=== PATIENT | female | born 1940 | race Caucasian/White ===

== ENCOUNTER 2016-06-15 08:30 | Outpatient (CLI) | payer MEDICARE | END 2016-06-15 08:31 | disposition home or self-care (01) | DX: H66.92 Otitis media, unspecified, left ear (principal) ==

== ENCOUNTER 2016-12-21 14:21 | Outpatient (CLI) | payer OTHER ==
[2016-12-21 12:50] LABS: BASOPHILS # (AUTO) 0.1 10^3/uL (0.0-0.1); BASOPHILS % (AUTO) 0.7 %; EOSINOPHILS # (AUTO) 0.2 10^3/uL (0.0-0.7); EOSINOPHILS % (AUTO) 2.7 %; HCT - HEMATOCRIT 39.6 % (37.0-47.0); HGB - HEMOGLOBIN 13.6 g/dL (12.0-16.0); LYMPHOCYTES # (AUTO) 1.7 10^3/uL (1.5-3.5); LYMPHOCYTES % (AUTO) 25.6 %; MEAN CORPUSCULAR HGB CONC 34.2 g/dL (32.0-36.0); MEAN CORPUSCULAR VOLUME 93.4 fL (81.0-99.0); MEAN PLATELET VOLUME 8.1 fL (7.9-10.8); MONOCYTES # (AUTO) 0.7 10^3/uL (0.0-1.0); MONOCYTES % (AUTO) 9.9 %; NEUTROPHILS # (AUTO) 4.2 10^3/uL (1.5-6.6); NEUTROPHILS % (AUTO) 61.1 %; RED BLOOD COUNT 4.24 10^6/uL (4.20-5.40); RED CELL DISTRIBUTION WIDTH 13.6 % (12.0-15.0); UNCORRECTED WHITE BLOOD COUNT 6.8 x10^3/uL; WHITE BLOOD COUNT 6.8 x10^3/uL (4.8-10.8)
[2016-12-21 13:14] LABS: ALBUMIN/GLOBULIN RATIO 1.2 (1.0-2.2); BILIRUBIN,TOTAL 0.9 mg/dL (0.2-1.0); BUN - BLOOD UREA NITROGEN 19 mg/dL (6-20); CALCIUM 9.7 mg/dL (8.5-10.3); CARBON DIOXIDE - CO2 32 mmol/L (21-32); CHLORIDE 97 mmol/L (101-111); CHOL/HDL RATIO 3.4 (<4.4); CHOLESTEROL 260 mg/dL; CREATININE 0.9 mg/dL (0.4-1.0); GFR - MDRD 61 (>89); GLUCOSE 110 mg/dL (70-100); HDL CHOLESTEROL 76 mg/dL; HEMOGLOBIN A1C 0.54 g/dL; LDL/HDL RATIO 2.1 (<4.4); POTASSIUM 3.9 mmol/L (3.5-5.0); SODIUM 137 mmol/L (135-145); TOTAL PROTEIN 7.4 g/dL (6.7-8.2); TRIGLYCERIDES 113 mg/dL; VLDL CHOLESTEROL 23 mg/dL
== END 2016-12-21 14:22 | disposition home or self-care (01) ==
LOC: LAB.WCP 14:21
PROVIDERS: ATTEND Family Medicine
DX: R73.01 Impaired fasting glucose (principal); I10 Essential (primary) hypertension
CPT/HCPCS: 36415; 80053; 80061; 83036; 85025

== ENCOUNTER 2018-06-11 08:00 | Outpatient (CLI) | payer MEDICARE, OTHER ==
[2018-06-11 12:46] LABS: BASOPHILS # (AUTO) 0.1 10^3/uL (0.0-0.1); EOSINOPHILS # (AUTO) 0.2 10^3/uL (0.0-0.7); EOSINOPHILS % (AUTO) 3.1 %; HGB - HEMOGLOBIN 13.6 g/dL (12.0-16.0); LYMPHOCYTES % (AUTO) 28.6 %; MEAN CORPUSCULAR HEMOGLOBIN 31.9 pg (27.0-31.0); MEAN CORPUSCULAR HGB CONC 34.3 g/dL (32.0-36.0); MEAN CORPUSCULAR VOLUME 92.8 fL (81.0-99.0); MEAN PLATELET VOLUME 8.2 fL (7.9-10.8); MONOCYTES # (AUTO) 0.7 10^3/uL (0.0-1.0); MONOCYTES % (AUTO) 9.5 %; NEUTROPHILS # (AUTO) 4.1 10^3/uL (1.5-6.6); NEUTROPHILS % (AUTO) 57.8 %; PLT - PLATELET COUNT 327 10^3/uL (130-450); RED BLOOD COUNT 4.27 10^6/uL (4.20-5.40); RED CELL DISTRIBUTION WIDTH 14.2 % (12.0-15.0)
[2018-06-11 12:49] LABS: BILIRUBIN,URINE NEGATIVE (NEGATIVE); GLUCOSE, URINE (UA) NEGATIVE (NEGATIVE); KETONES,URINE (UA) NEGATIVE (NEGATIVE); LEUKOCYTE ESTERASE, URINE TRACE (NEGATIVE); NITRITE,URINE NEGATIVE (NEGATIVE); OCCULT BLOOD,URINE NEGATIVE (NEGATIVE); PH,URINE 5.5 PH (5.0-7.5); PROTEIN,URINE TRACE mg/dL (NEGATIVE); UROBILINOGEN,URINE 0.2 (NORMAL) E.U./dL (NORMAL)
[2018-06-11 13:11] LABS: CALCIUM 9.5 mg/dL (8.5-10.3); CREATININE 0.8 mg/dL (0.4-1.0)
[2018-06-11 13:22] LABS: CLARITY,URINE HAZY (CLEAR)
[2018-06-11 13:23] LABS: BACTERIA,URINE Many /HPF (None Seen); CRYSTALS,URINE 6-10 Calcium Oxalate /LPF; RBC,URINE 0-5 /HPF (0-5); SQUAMOUS EPITHELIAL CELL,UR MANY Squamous (<= Few)
[2018-06-11 13:57] LABS: HB2 TOTAL 14.8 g/dL; HEMOGLOBIN A1C 0.56 g/dL; HEMOGLOBIN A1C % 5.6 % (4.6-6.2)
== END 2018-06-11 23:59 | disposition home or self-care (01) ==
LOC: LAB.WCP 08:00
PROVIDERS: ATTEND Family Medicine
DX: I10 Essential (primary) hypertension (principal); M75.101 Unspecified rotator cuff tear or rupture of right shoulder, not specified as traumatic; R73.01 Impaired fasting glucose
CPT/HCPCS: 36415; 80048; 81001; 83036; 85025; 87086

== ENCOUNTER 2019-02-11 13:15 | Outpatient (CLI) | payer MEDICARE, OTHER | END 2019-02-11 23:59 | disposition home or self-care (01) | LOC: LAB.WCP 13:15 | PROVIDERS: ATTEND Physician Assistant | DX: R35.0 Frequency of micturition (principal) | CPT/HCPCS: 87086; 87181 ==

== ENCOUNTER 2019-05-02 07:00 | Outpatient (CLI) | payer MEDICARE, OTHER | END 2019-05-02 23:59 | disposition home or self-care (01) | LOC: LAB.WCP 07:00 | PROVIDERS: ATTEND Family Medicine | DX: R35.0 Frequency of micturition (principal) | CPT/HCPCS: 87077; 87086; 87181 ==

== ENCOUNTER 2019-05-28 11:20 | Outpatient (CLI) | payer MEDICARE, OTHER ==
--- NOTE | 2019-05-28 12:56 | SLEEP CARE CONSULTATION ---
Information from patient questionnaire entered by Bouchra Diaz. I have reviewed and concur with the information entered by Bouchra Diaz. This document represents the service I personally performed and the decisions made by me, Michelle Londono MD, [facility]. History of Present Illness Reason for Visit: New patient Chief Complaint: reports: Other (having trouble sleeping at night) Duration of Symptoms: all my adult life Usual bedtime: 9-10 pm Time it takes to fall asleep: 60 or more minutes Snores at night: No Observed to quit breathing while asleep: No Sleeps alone due to snoring: No Number of times waking at night: 5-6 Recalls having dreams: Yes Usually gets out of bed at: 5-6 am Feels refreshed in the morning: No Morning headache: No Sleepy or fatigued during the day: Yes Ever fallen asleep while driving: No Takes day naps: No Prior sleep studies: No Additional HPI information: I had the pleasure of seeing Ms. Clark today regarding the possibility of her having a sleep disorder. As you know, she is a 78 year old lady who is here today as recommended by her clinical haematologist because she has atrial fibrillation. She also reports that when she had a shoulder surgery, she was witnessed to stop breathing and had to be transferred to the ICU to recover. The patient tells me that she normally goes to bed around 9 - 10 pm, and it takes her approximately 60+ minutes to fall asleep. She used to take trazodone. She has not been told that she snores at night. She has also been observed to stop breathing in her sleep. She sleeps alone. Her late used a CPAP with oxygen. She can recall waking up on the average of 5 - 6 times during the night. Most of the ti me she wakes up because of having to use the bathroom. She has not awakened because of her own snoring, choking, or having to gasp for air. There is a lot of tossing and turning in her sleep. No somniloquy (sleep talking) or somnambulism (sleep walking). Generally she can recall having dreams. In the morning she usually gets up out of the bed around 5 - 6 a.m. not feeling refreshed nor rested. She usually does not have a morning headache. During the day she does not feel sleepy or fatigued. Her score on [place] Sleepiness Scale is 1 out of 24. She has never fallen asleep while driving nor has had any accident due to sleepiness. She usually does not take naps during the day. Upon falling asleep during the day she denies having vivid dreams. She has never had sleep paralysis, experienced cataplexy or symptoms of restless leg syndrome. She denies having impaired concentration during the day. - Parasomnia Symptoms Ever been unable to move upon waking from sleep: No Ever felt weak in the knees when startled or emotional: No Bothered by creepy, crawly, restless sensations in legs: No Problems with memory or concentration: No Subjective Initial [place] Sleepiness Scale score: 1 Past Medical History Past Medical History: reports: Hypertension, Arrythmia (Atrial fibrillation) Social History The patient's occupation is a retired. Patient is / and lives in [place]. Have you smoked in the past 12 months: No Cigarettes per day (20/pack): 10 Years of smokin Quit date: 06/2018 Smoking Pack Years: 2.0 Alcohol use: Yes Alcohol amount and frequency: 1-2 every night Caffeine use: Yes Caffeine amount and frequency: 1-2 cups of coffee Family History Family history of sleep disordered breathing: No Allergies and Home Medications Drug allergies reviewed: Yes Home medication list reviewed: Yes Allergy and home medication list: Meds: lisinopril/hydrochlorothiazide, gabapentin, Xarelto, flecainide, metoprolol, hydrocodone Allergies: penicillin, Keflex, [place]win Review of Systems Weight gain over past 5 years: 10 Cardiovascular: reports: high blood pressure, irregular heart rate or pulse Respiratory: denies: shortness of breath, wheeze, sputum production, chronic cough, other Gastrointestinal: denies: heartburn, difficulty swallowing, nausea, vomitting, diarrhea, abdominal pain, other Urinary: denies: incontinence, frequency, urgency, impotence, other Neurological: reports: gait or balance problems Psychiatric: denies: Attention Deficit Hyperactivity, anxiety, depression, mood disorder, claustrophobia, other Ear/Nose/Throat: denies: nasal congestion, sinus problems, nose bleeds, dry mouth/throat, hoarseness, injury to nose, tonsillectomy, wisdom teeth removed, other Endocrine: denies: thyroid disease, history of goiter, sluggishness, too hot or cold, excessive thirst, increased appetite, increased urination, unexplained weakness, other Musculoskeletal: reports: joint pain Immunologic: denies: sneezing, rash, itching, allergies to food or environment, other Physical Exam Height: 5 ft 1 in Weight: 220 lb (Physical exam deferred because of the Covid-19 epidemic.) Body Mass Index: 41.5 BMI Classification: Morbidly Obese Impression and Plan IMPRESSION: 1. Obstructive Sleep Apnea-Hypopnea Syndrome, as suggested by history of observed cessation of breath while asleep, frequent awakenings during the night, and unrefreshed sleep. Narrow oropharynx and obesity are common predisposing factors for obstructive sleep apnea-hypopnea syndrome. Obstructive sleep apnea, left untreated, can increase the risk of recurrent paroxysmal atrial fibrillation. Pathophysiology of sleep-disordered breathing was discussed. I recommend proceeding to polysomnography to confirm the diagnosis and to assess severity. If she has significant sleep disordered breathing, a manual CPAP titration study will also be performed to find the optimal treatment pressure. I informed the patient of what the sleep studies involve and after some discussion, she agreed to proceed. Plan: 1. Schedule in-laboratory polysomnography + manual CPAP titration study. 2. Avoid long distance driving or when feeling sleepy. 3. Avoid alcohol, sedative and muscle relaxant around bedtime. 4. Attempt to lose weight. 5. Return in 1 to 2 weeks after the study to discuss results and initiate therapy I spent 100% of this visit face to face with the patient with greater than 50% of this was spent time counseling the patient and coordination of care.
== END 2019-05-28 11:21 | disposition home or self-care (01) ==
LOC: SC 11:20
PROVIDERS: ATTEND Internal Medicine Pulmonary Disease
DX: R06.81 Apnea, not elsewhere classified (principal); G47.8 Other sleep disorders; I48.91 Unspecified atrial fibrillation; E66.01 Morbid (severe) obesity due to excess calories; Z68.41 Body mass index [BMI] 40.0-44.9, adult
CPT/HCPCS: 99203; G0463; 99212

== ENCOUNTER 2019-07-08 08:00 | Outpatient (CLI) | payer MEDICARE, OTHER | END 2019-07-08 23:59 | disposition home or self-care (01) | LOC: LAB.R 08:00 | PROVIDERS: ATTEND Family Medicine | DX: N39.0 Urinary tract infection, site not specified (principal) | CPT/HCPCS: 87086; 87181 ==

== ENCOUNTER 2019-08-27 19:24 | Outpatient (CLI) | payer MEDICARE, OTHER | END 2019-08-27 19:25 | disposition home or self-care (01) | LOC: SC 19:24 | PROVIDERS: ATTEND Internal Medicine Pulmonary Disease | DX: G47.33 Obstructive sleep apnea (adult) (pediatric) (principal) | CPT/HCPCS: 95810 ==

== ENCOUNTER 2019-09-09 08:59 | Outpatient (CLI) | payer MEDICARE, OTHER ==
--- NOTE | 2019-09-09 09:50 | SLEEP CARE CONSULTATION ---
Information from patient questionnaire entered by Bouchra Diaz. I have reviewed and concur with the information entered by Bouchra Diaz. This document represents the service I personally performed and the decisions made by me, Michelle Londono MD, [facility]. History of Present Illness Service Date and Time: 09/09/2019 0859 Initial [place] Sleepiness Scale score: 1 (in 2019) Current [place] Sleepiness Scale score: 4 Additional HPI information: HPI: Ms. Clark was called for follow up of the sleep study she had on 08/28/2019. 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 The sleep architecture was otherwise relatively normal considering the first-night effect. Respiratory monitoring showed mild obstructive sleep apnea-hypopnea (AHI = 7.8) associated with oxyhemoglobin desaturation and mild hypoxia (tima oxygen saturation of 83%) but not sleep fragmentation. The respiratory events occurred almost exclusively during supine sleep (supine AHI = 10.3; non-supine = 1.93). Snore was loud in intensity. There was no significant periodic leg movement of sleep. Cardiac rhythm was normal sinus rhythm without significant arrhythmia. No abnormal behavior (parasomnia) observed during the night. The patient was informed of these findings. I explained to her the pathophysiology behind obstructive sleep apnea. We then spent quite a bit of time discussing different treatment options. For mild obstructive sleep apnea, surgery and oral appliance are alternatives to nasal CPAP therapy but in moderate or severe cases, nasal CPAP is the most effective and reliable treatment. After some discussion, she opted to go with the nasal CPAP therapy. I explained to her how CPAP machine works and what to expect when using the machine. She is actually quite familiar with the treatment because her late used a CPAP. Allergies and Home Medications Drug allergies reviewed: Yes Home medication list reviewed: Yes Review of Systems Review of systems same as previous: Yes Physical Exam Vital signs obtained and entered by: Due to the COVID precautions, physical exam is deferred Height: 5 ft 1 in Impression and Plan IMPRESSION: 1. Obstructive Sleep Apnea-Hypopnea Syndrome, mild, and positional. The patient does sleep mostly supine at home due to her shoulder injury. Because she has underlying history of atrial fibrillation, positive airway pressure therapy is indicated. As mentioned above, the patient will be started on autoCPAP set at 4 - 12 cmH2O. Depending on her response and compliance she may be brought back for an overnight CPAP titration study. PLAN: 1. Prescription made for an autoCPAP with heated humidifier and related supplies. 2. Attempt to lose weight. 3. Be careful when driving until her sleepiness resolves completely on nasal CPAP therapy. 4. Return in one month for follow up. I will assess her response and compliance at that time. Visit Type: In Office Patient Location: Office Location of Provider: Office Provider Statement: I spent 100% of the Face to Face Visit with the patient with greater than 50% spent counseling the patient and coordination of care.
== END 2019-09-09 09:00 | disposition home or self-care (01) ==
LOC: SC 08:59
PROVIDERS: ATTEND Internal Medicine Pulmonary Disease
DX: G47.33 Obstructive sleep apnea (adult) (pediatric) (principal)
CPT/HCPCS: 99213; G0463; 99212

== ENCOUNTER 2019-12-25 07:15 | Outpatient (CLI) | payer MEDICARE, OTHER | END 2019-12-25 23:59 | disposition home or self-care (01) | LOC: LAB.R 07:15 | PROVIDERS: ATTEND Family Medicine | DX: N39.0 Urinary tract infection, site not specified (principal) | CPT/HCPCS: 87077; 87086; 87181 ==

== ENCOUNTER 2020-01-09 11:51 | Outpatient (CLI) | payer MEDICARE, OTHER ==
[2020-01-09 19:02] LABS: BASOPHILS % (AUTO) 0.5 %; EOSINOPHILS # (AUTO) 0.2 10^3/uL (0.0-0.7); EOSINOPHILS % (AUTO) 1.9 %; HGB - HEMOGLOBIN 12.8 g/dL (12.0-16.0); LYMPHOCYTES # (AUTO) 2.4 10^3/uL (1.5-3.5); LYMPHOCYTES % (AUTO) 30.5 %; MEAN CORPUSCULAR HEMOGLOBIN 30.7 pg (27.0-31.0); MEAN CORPUSCULAR HGB CONC 31.4 g/dL (32.0-36.0); MEAN CORPUSCULAR VOLUME 97.6 fL (81.0-99.0); MEAN PLATELET VOLUME 9.4 fL (7.9-10.8); MONOCYTES # (AUTO) 0.8 10^3/uL (0.0-1.0); MONOCYTES % (AUTO) 10.4 %; NEUTROPHILS # (AUTO) 4.3 10^3/uL (1.5-6.6); NEUTROPHILS % (AUTO) 56.3 %; PLT - PLATELET COUNT 391 10^3/uL (130-450); RED BLOOD COUNT 4.17 10^6/uL (4.20-5.40); RED CELL DISTRIBUTION WIDTH 13.7 % (12.0-15.0); WHITE BLOOD COUNT 7.7 x10^3/uL (4.8-10.8)
[2020-01-09 19:29] LABS: ALBUMIN 4.2 g/dL (3.2-5.5); ALBUMIN/GLOBULIN RATIO 1.1 (1.0-2.2); ALKALINE PHOSPHATASE 73 IU/L (42-121); ALT ALANINE AMINOTRANSFERASE 19 IU/L (10-60); AST ASPARTATE AMINOTRANSFERASE 19 IU/L (10-42); BILIRUBIN,TOTAL 0.6 mg/dL (0.2-1.0); BUN - BLOOD UREA NITROGEN 22 mg/dL (6-20); CALCIUM 9.7 mg/dL (8.5-10.3); CARBON DIOXIDE - CO2 29 mmol/L (21-32); CHLORIDE 96 mmol/L (101-111); CHOL/HDL RATIO 2.8 (<4.4); CHOLESTEROL 264 mg/dL; CREATININE 0.8 mg/dL (0.4-1.0); GLUCOSE 89 mg/dL (70-100); HDL CHOLESTEROL 95 mg/dL; LDL CHOLESTEROL,CALCULATED 150 mg/dL; LDL/HDL RATIO 1.6 (<4.4); SODIUM 135 mmol/L (135-145); VLDL CHOLESTEROL 19 mg/dL
[2020-01-09 20:10] LABS: HEMOGLOBIN A1c% 5.4 % (4.27-6.07)
== END 2020-01-09 11:52 | disposition home or self-care (01) ==
LOC: LAB.WCP 11:51
PROVIDERS: ATTEND Family Medicine
DX: I10 Essential (primary) hypertension (principal); R73.01 Impaired fasting glucose
CPT/HCPCS: 36415; 80053; 80061; 83036; 83721; 84443; 85025

== ENCOUNTER 2020-07-09 09:14 | Outpatient (CLI) | payer MEDICARE, OTHER | END 2020-07-09 09:15 | disposition critical access hospital (66) | LOC: EMS 09:14 | DX: R53.1 Weakness (principal) | CPT/HCPCS: A0425; A0429 ==

== ENCOUNTER 2020-07-09 09:31 | Inpatient (IN) | payer MEDICARE, OTHER ==
[2020-07-09] MEDS ORDERED: cefTRIAXone 1 GM in SODIUM CHLORIDE 0.9% MINIBAG 100 ML IV STA (10:17)
[2020-07-09] MEDS ORDERED: SODIUM CHLORIDE 0.9% 1,000 ML IV STA (10:17)
[2020-07-09] MEDS ORDERED: ACETAMINOPHEN 325 MG TABLET PO STA (10:23)
[2020-07-09 10:38] LABS: BASOPHILS % (AUTO) 0.2 %; EOSINOPHILS % (AUTO) 0.1 %; HCT - HEMATOCRIT 28.9 % (37.0-47.0); HGB - HEMOGLOBIN 9.8 g/dL (12.0-16.0); LYMPHOCYTES # (AUTO) 1.4 10^3/uL (1.5-3.5); LYMPHOCYTES % (AUTO) 10.5 %; MEAN CORPUSCULAR HEMOGLOBIN 32.5 pg (27.0-31.0); MEAN CORPUSCULAR HGB CONC 33.9 g/dL (32.0-36.0); MEAN CORPUSCULAR VOLUME 95.7 fL (81.0-99.0); MEAN PLATELET VOLUME 9.5 fL (7.9-10.8); MONOCYTES # (AUTO) 0.6 10^3/uL (0.0-1.0); MONOCYTES % (AUTO) 4.1 %; NEUTROPHILS # (AUTO) 11.4 10^3/uL (1.5-6.6); NEUTROPHILS % (AUTO) 84.6 %; PLT - PLATELET COUNT 361 10^3/uL (130-450); RED BLOOD COUNT 3.02 10^6/uL (4.20-5.40); RED CELL DISTRIBUTION WIDTH 13.4 % (12.0-15.0); WHITE BLOOD COUNT 13.5 x10^3/uL (4.8-10.8)
[2020-07-09 10:48] LABS: ALBUMIN 3.8 g/dL (3.2-5.5); ALBUMIN/GLOBULIN RATIO 1.2 (1.0-2.2); BILIRUBIN,TOTAL 0.8 mg/dL (0.2-1.0); CALCIUM 9.1 mg/dL (8.5-10.3); CREATININE 0.9 mg/dL (0.4-1.0); POTASSIUM 3.6 mmol/L (3.5-5.0); TOTAL PROTEIN 7.1 g/dL (6.7-8.2)
[2020-07-09] MEDS ORDERED: cefTRIAXone 1 GM VIAL ONE (10:55)
[2020-07-09] MEDS ORDERED: FLECAINIDE 50 MG TABLET PO STA (11:42)
[2020-07-09 12:04] LABS: BILIRUBIN,URINE NEGATIVE (NEGATIVE); GLUCOSE, URINE (UA) NEGATIVE (NEGATIVE); KETONES,URINE (UA) NEGATIVE (NEGATIVE); LEUKOCYTE ESTERASE, URINE MODERATE (NEGATIVE); NITRITE,URINE NEGATIVE (NEGATIVE); OCCULT BLOOD,URINE NEGATIVE (NEGATIVE); PH,URINE 5.5 PH (5.0-7.5); PROTEIN,URINE NEGATIVE (NEGATIVE); UROBILINOGEN,URINE 0.2 (NORMAL) E.U./dL (NORMAL)
[2020-07-09 12:05] LABS: CLARITY,URINE CLEAR (CLEAR)
--- NOTE | 2020-07-09 12:07 | ED Physician Documentation ---
History of Present Illness - Stated complaint Stated Complaint: GENERAL WEAKNESS - Chief complaint Chief Complaint: General - History obtained from History obtained from: Patient - Additonal information Additional information: 79-year-old with history of A. fib on flecainide and diltiazem, high blood pressure, frequent urinary tract infections, presents with boil to left upper inner thigh and sensation of weakness, body aches over the past several days, constant edema progressively worsening, a/w suprapubic fullness. Also with subjective chills. denies back pain, nausea, hematuria, sob. Review of Systems Ten Systems: 10 systems reviewed and negative Constitutional: reports: Fever, Chills, Myalgias, Fatigue GI: reports: Abdominal Pain. denies: Nausea, Vomiting, Diarrhea : reports: Incontinent Skin: denies: Rash Musculoskeletal: denies: Back pain Neurologic: reports: Generalized weakness PD PAST MEDICAL HISTORY - Past Medical History Cardiovascular: Hypertension Musculoskeletal: Osteoarthritis - Past Surgical History Past Surgical History: Yes General: Cholecystectomy Ortho: Knee replacement - Present Medications Home Medications: Ambulatory Orders Medication Instructions Recorded Confirmed Gabapentin [Neurontin] 300 mg PO BID 07/24/14 07/09/20 Cefpodoxime Proxetil [Vantin] 100 mg PO Q12H 10 Days #20 tablet 07/09/20 Diltiazem HCl [Tiazac] 120 mg PO DAILY 07/09/20 07/09/20 Flecainide [Tambocar] 1 tab BID 07/09/20 07/09/20 Lisinopril/Hydrochlorothiazide 1 tab DAILY 07/09/20 07/09/20 [Zestoretic 20-25 mg Tablet] Rivaroxaban [Xarelto] 20 mg DAILY 07/09/20 07/09/20 - Allergies Allergies/Adverse Reactions: Allergies Allergy/AdvReac Type Severity Reaction Status Date / Time Beta-Blockers Allergy Respiratory Verified 07/09/20 09:51 (Beta-Adrenergic Bloc cephalexin [From Keflex] Allergy Unknown Verified 07/09/20 09:51 Penicillins Allergy Rash Verified 07/09/20 09:51 pentazocine lactate * Allergy Hallucinati Verified 07/09/20 09:51 [From Memo] ons - Social History Does the pt smoke?: No Smoking Status: Never smoker Does the pt drink ETOH?: Yes Does the pt have substance abuse?: No PD ED PE NORMAL - Vitals Vital signs reviewed: Yes - General General: Alert and oriented X 3, No acute distress - HEENT HEENT: Atraumatic, PERRL, EOMI - Neck Neck: Supple, no meningeal sign - Cardiac Cardiac: Other (tachycardic rate, irregular rhythm) - Respiratory Respiratory: Clear bilaterally - Abdomen Abdomen: Non tender, Non distended, Other (discomfort to suprapubic palpation. Boil to L inner thigh about 1cm diameter with surrounding mild erythema.) - Back Back: No CVA TTP - Derm Derm: Normal color - Extremities Extremities: No deformity - Neuro Neuro: Alert and oriented X 3 - Psych Psych: Normal mood Results - Vitals Vitals: Vital Signs - 24 hr 07/09/20 07/09/20 07/09/20 09:31 10:00 11:00 Temperature 36.3 C L Heart Rate 112 H 109 H 106 H Heart Rate [ Sitting] Heart Rate [ Supine] Respiratory 16 20 21 Rate Blood Pressure 153/73 H 154/85 H 157/85 H Blood Pressure [Sitting] Blood Pressure [Supine] O2 Saturation 98 96 96 07/09/20 07/09/20 07/09/20 11:30 11:55 12:00 Temperature 36.3 C L Heart Rate 107 H 105 H Heart Rate [ Sitting] Heart Rate [ Supine] Respiratory 22 21 Rate Blood Pressure 151/83 H 120/69 Blood Pressure [Sitting] Blood Pressure [Supine] O2 Saturation 96 97 07/09/20 07/09/20 07/09/20 12:30 14:07 15:20 Temperature Heart Rate 101 H 102 H Heart Rate [ 93 Sitting] Heart Rate [ 91 Supine] Respiratory 20 24 Rate Blood Pressure 136/66 H 159/82 H Blood Pressure 132/76 H [Sitting] Blood Pressure 108/84 H [Supine] O2 Saturation 96 97 Oxygen O2 Source Room air - Labs Labs: Laboratory Tests 07/09/20 07/09/20 07/09/20 10:30 10:30 10:30 WBC 13.5 H RBC 3.02 L Hgb 9.8 L Hct 28.9 L MCV 95.7 MCH 32.5 H MCHC 33.9 RDW 13.4 Plt Count 361 MPV 9.5 Neut # (Auto) 11.4 H Lymph # (Auto) 1.4 L [place] # (Auto) 0.6 Eos # (Auto) 0.0 Baso # (Auto) 0.0 Absolute Nucleated RBC 0.00 Nucleated RBC % 0.0 Sodium 135 Potassium 3.6 Chloride 99 L Carbon Dioxide 25 Anion Gap 11.0 BUN 75 H Creatinine 0.9 Estimated GFR (MDRD) 61 L Glucose 147 H Lactic Acid 1.7 Calcium 9.1 Total Bilirubin 0.8 AST 13 ALT 16 Alkaline Phosphatase 49 Total Protein 7.1 Albumin 3.8 Globulin 3.3 Albumin/Globulin Ratio 1.2 Urine Color Urine Clarity Urine pH Ur Specific [place] Urine Protein Urine Glucose (UA) Urine Ketones Urine Occult Blood Urine Nitrite Urine Bilirubin Urine Urobilinogen Ur Leukocyte Esterase Urine RBC Urine WBC Ur Squamous Epith Cells Urine Bacteria Urine Culture Comments 07/09/20 11:45 WBC RBC Hgb Hct MCV MCH MCHC RDW Plt Count MPV Neut # (Auto) Lymph # (Auto) [place] # (Auto) Eos # (Auto) Baso # (Auto) Absolute Nucleated RBC Nucleated RBC % Sodium Potassium Chloride Carbon Dioxide Anion Gap BUN Creatinine Estimated GFR (MDRD) Glucose Lactic Acid Calcium Total Bilirubin AST ALT Alkaline Phosphatase Total Protein Albumin Globulin Albumin/Globulin Ratio Urine Color YELLOW Urine Clarity CLEAR Urine pH 5.5 Ur Specific [place] 1.010 Urine Protein NEGATIVE Urine Glucose (UA) NEGATIVE Urine Ketones NEGATIVE Urine Occult Blood NEGATIVE Urine Nitrite NEGATIVE Urine Bilirubin NEGATIVE Urine Urobilinogen 0.2 (NORMAL) Ur Leukocyte Esterase MODERATE H Urine RBC LINE DIRECTOR Urine WBC LINE DIRECTOR Ur Squamous Epith Cells LINE DIRECTOR Urine Bacteria LINE DIRECTOR Urine Culture Comments INDICATED PD MEDICAL DECISION MAKING - ED course ED course: 79-year-old woman presents with fever and body aches, suprapubic fullness, found to have uti. Patient initially was feeling better and discharged home but then became lightheaded when she was about to leave. d/w Dr. Valladares for possible admission. She recommended to check orthostatics and reevaluate. Patient with 24 point drop in SBP on orthostatics. Will admit for observation. 2nd liter ordered. Departure - Departure Disposition: ED Place in Observation Clinical Impression: UTI (urinary tract infection), Boil, Orthostatic hypotension Condition: Good Instructions: ED UTI Cystitis Female Prescriptions: Cefpodoxime Proxetil [Vantin] 100 mg PO Q12H 10 Days #20 tablet Comments: You were seen in the emergency department for a urinary tract infection as well as a boil on the left thigh. Please take the antibiotics as prescribed and return to the emergency department if you experience any new or worsening symptoms or have other concerns. Follow-up with your primary doctor this week.
[2020-07-09] MEDS ORDERED: LACTATED RINGERS 1,000 ML IV STA (14:49)
[2020-07-09] MEDS ORDERED: oxyCODONE 5 MG TABLET PO PRN (15:34)
[2020-07-09] MEDS ORDERED: ONDANSETRON 4 MG/2 ML VIAL IVP PRN (15:34)
[2020-07-09] MEDS ORDERED: ACETAMINOPHEN 325 MG TABLET PO PRN (15:34)
[2020-07-09] MEDS ORDERED: SODIUM CHLORIDE FLUSH 0.9% 10 ML SYRINGE IVP PRN (15:34)
--- NOTE | 2020-07-09 15:54 | HISTORY & PHYSICAL EXAMINATION ---
Chief Complaint - Chief Complaint Chief Complaint: weakness, even can not walk to bathroom History of Present Illness - Admitted From Admitted From:: ER - History Obtained From Records Reviewed: [facility] History obtained from: pt - History of Present Illness HPI Comment/Other: This is a 79-years old female with a past medical history significant for hypertension, A fibrillation, Frequently UTI, Obese who present ER complain of profound Weakness. Patient report she feel so weakness even she was difficulty to walk to the bathroom or 10 feet. She was living alone in [facility], her girlfriend to try to help her but she cannot do that because she has a job. She reported she believe she had a "boil" on upper inner left thigh, but Now it is healed. She report she had frequent UTI in the past, At this time she denies burning Or pain in urination, but she feel very cold and chilly, and shaking, no fever at home. She reported she had a few times of vomiting in this morning. She denies chest pain, fever, shortness of breathing, diarrhea. Lab test in the ER show patient had elevated WBC at 13.8, moderate elevated esterase Possible UTI and significant elevated BUN 75. Hemoglobin is 9.8 now decreased from 12.8 about 6 months ago. In the ER, patient is afebrile, patient had tachycardia 112, pt has Slightly elevated blood pressure, patient has no tachypnea, patient has 98% sats on room air. Discussed the care goal with the patient, patient clearly state she is DNR History - Past Medical History Cardiovascular: reports: Hypertension Musculoskeletal: reports: Osteoarthritis - Past Surgical History General: reports: Cholecystectomy Ortho: reports: Knee replacement - Family & Social History Family History: Mother: , Father: Family History Comment/Other: Patient report her father at age 93 from aging, Her mother also at age 93. Her brother at age 82 from heart failure. Social History Notes: Patient denying history of cigarette smoking, social alcohol drinking without Issue, Or drug issue Meds/Allgy - Home Medications Home Medications: Ambulatory Orders Medication Instructions Recorded Confirmed Gabapentin [Neurontin] 300 mg PO BID 07/24/14 07/09/20 Cefpodoxime Proxetil [Vantin] 100 mg PO Q12H 10 Days #20 tablet 07/09/20 Diltiazem HCl [Tiazac] 120 mg PO DAILY 07/09/20 07/09/20 Flecainide [Tambocar] 1 tab BID 07/09/20 07/09/20 Lisinopril/Hydrochlorothiazide 1 tab DAILY 07/09/20 07/09/20 [Zestoretic 20-25 mg Tablet] Rivaroxaban [Xarelto] 20 mg DAILY 07/09/20 07/09/20 - Allergies Allergies/Adverse Reactions: Allergies Allergy/AdvReac Type Severity Reaction Status Date / Time Beta-Blockers Allergy Respiratory Verified 07/09/20 09:51 (Beta-Adrenergic Bloc cephalexin [From Keflex] Allergy Unknown Verified 07/09/20 09:51 Penicillins Allergy Rash Verified 07/09/20 09:51 pentazocine lactate * Allergy Hallucinati Verified 07/09/20 09:51 [From Memo] ons Review of Systems - Constitutional Constitutional: reports: Weakness. denies: Fatigue, Fever, Chills, Poor appetite, Diaphoresis, Night sweats - Eyes Eyes: denies: Pain, Blurred vision, Field loss, Vision loss - Ears, Nose & Throat Ears, Nose & Throat: denies: Ear pain, Vertigo, Nosebleeds, Bleeding gums - Cardiovascular Cariovascular: denies: Irregular heart rate, Palpitations, Chest pain, Lightheadedness, Syncope, Exertional dyspnea - Respiratory Respiratory: denies: Cough, Sputum production, Wheezing, Orthopnea, SOB at rest, SOB with exertion - Gastrointestinal Gastrointestinal: reports: Nausea, Vomiting. denies: Abdominal pain, Constipation, Diarrhea, Rectal bleeding, Black stools, Bloody stools - Genitourinary Genitourinary: denies: Dysuria, Urgency, Incontinence - Musculoskeletal Musculoskeletal: denies: Muscle pain, Muscle aches, Limited range of motion - Integumentary Integumentary: denies: Rash, Lesions, Lumps - Neurological Neurological: reports: General weakness. denies: Focal weakness, Headache, Dizziness, Numbness, Pre-existing deficit, Abnormal gait, Seizures, Incoordination, Slurred speech - Psychiatric Psychiatric: denies: Depression, Suicidal - Endocrine Endocrine: denies: Polyuria, Polyphagia - Hematologic/Lymphatic Hematologic/Lymphatic: denies: Anemia, Blood clots Prior Level of Functionality: Patient is living alone and independent at [facility] Exam - Vital Signs Vital Signs: Vital Signs x48h Temp Pulse Pulse Pulse Resp BP BP 07/09/20 15:20 93 91 132/76 H 07/09/20 14:07 102 H 24 159/82 H 07/09/20 12:30 101 H 20 136/66 H 07/09/20 12:00 105 H 21 120/69 07/09/20 11:55 36.3 C L 07/09/20 11:30 107 H 22 151/83 H 07/09/20 11:00 106 H 21 157/85 H 07/09/20 10:00 109 H 20 154/85 H 07/09/20 09:31 36.3 C L 112 H 16 153/73 H BP Pulse Ox 07/09/20 15:20 108/84 H 07/09/20 14:07 97 07/09/20 12:30 96 07/09/20 12:00 97 07/09/20 11:55 07/09/20 11:30 96 07/09/20 11:00 96 07/09/20 10:00 96 07/09/20 09:31 98 - Physical Exam General Appearance: positive: No acute distress, Alert. negative: Lethargic Eyes Bilateral: positive: Normal inspection, PERRL, No lid inflammation ENT: positive: ENT inspection nml, No signs of dehydration. negative: Purulent nasal drainage Neck: positive: Nml inspection, Trachea midline. negative: Tracheal deviation Respiratory: positive: Chest non-tender, No respiratory distress, Breath sounds nml. negative: Wheezes, Rales Cardiovascular: positive: Regular rate & rhythm, No murmur, Tachycardia. negative: Bradycardia, Systolic murmur, Diastolic murmur Peripheral Pulses: positive: 2+ Abdomen: positive: Non-tender, Nml bowel sounds, No distention. negative: Tenderness Back: positive: Nml inspection Skin: positive: Color nml, Warm, Dry. negative: Cyanosis, Diaphoresis Extremities: positive: Non-tender, Nml appearance. negative: Calf tenderness Neurologic/Psychiatric: positive: Oriented x3, Sensation nml, Mood/affect nml. negative: Weakness, Sensory loss, Facial droop, Slurred/abnml speech, Depressed mood/affect Sepsis Event Note (H) - Evaluation Current Stage of Sepsis: Ruled out Conclusion/Plan - Problem List (1) Generalized weakness Conclusion/Plan: Patient present some dehydration and possible urinary tract infection, and profound weakness. we will consult with physical therapist occupational therapist, Continue give patient intravenous IV fluids. (2) Atrial fibrillation with rapid ventricular response Conclusion/Plan: Patient had Tachycardia HR is 112. Patient denied palpitation or chest pain. EKG is pending. Patient had history of atrial fibrillation. Patient reported she did not take any home medication on today. We will resume patient home medication Cardizem and Flecainide, And Xarelto. director of rotc patient. (3) Orthostatic intolerance Conclusion/Plan: Patient present dizziness, shaking and difficulty to walk when patient was checked for orthostatics in the ER. orthostatic blood pressure check did show blood pressure difference in the sitting and standing. Patient present some dehydration. Patient had 2 L of fluid NS in the ER. We will continue give patient intravenous IV fluids, Continue check patient orthostatic Blood pressure, fall Precaution, Consult with PT and OT. (4) UTI (urinary tract infection) Conclusion/Plan: Patient has history frequent UTI, patient had elevated esterase in the urinalysis,Patient present shaking, complain of chilly, and elevated WBC, lactic acid is normal arrange. And she was treated intravenous antibiotics in the ER, We will continue to treat with intravenous antibiotics, urinalysis is pending, we will check TSH for pt feeling of chilly and feeling of cold. order probiotics. (5) Hypertension Conclusion/Plan: Stable, we will hold his HCTZ/Lisinopril of her home medication, patient had orthostatic intolerance. (6) Anemia Conclusion/Plan: Today patient hemoglobin is 9.8, her hemoglobin drop from 12.8 about 6 months ago, And her BUN 75. Patient did not know if she has dark stool. We will check occult blood stool test, and anemia study. - Lab Results Fish Bones: 07/09/20 10:30 07/09/20 10:30 Core Measures - Anticipated LOS I expect patient to be DC'd or transferred within 96 hours.: Yes - DVT/VTE - Prophylaxis VTE/DVT Device ordered at admit?: Yes VTE/DVT Prophylaxis med ordered at admit?: Yes
--- OUTSIDE RECORDS SUMMARY | 2020-07-09 15:59 | EXTERNAL MEDICAL SUMMARY RPT | Continuity of Care Document ---
:1940 Demographics Phone Unavailable Preferred Language Unknown Marital Status Unknown Cheondoism Affiliation Unknown Race Unknown Ethnic Group Unknown Author Organization [facility] Address [address] [place] [address] Phone Social History date description facility [id number]
[2020-07-09 16:52] LABS: CORONAVIRUS 229E-RESP PCR NOT DETECTED; CORONAVIRUS HKU1-RESP PCR NOT DETECTED; CORONAVIRUS NL63-RESP PCR NOT DETECTED; CORONAVIRUS OC43-RESP PCR NOT DETECTED; HUMAN METAPNEUMOVIRUS NOT DETECTED; INFLUENZA A- RESP PCR PANEL NOT DETECTED; INFLUENZA B - RESP PCR PANEL NOT DETECTED; PARAINFLUENZA VIRUS 1 NOT DETECTED; PARAINFLUENZA VIRUS 2 NOT DETECTED; PARAINFLUENZA VIRUS 3 NOT DETECTED; RHINOVIRUS/ENTEROVIRUS NOT DETECTED; SARS-CoV-2 -RESP PCR PANEL NOT DETECTED
[2020-07-09 16:53] LABS: B. PARAPERTUSSIS- RESP PCR PAN NOT DETECTED; B. PERTUSSIS- RESP PCR PANEL NOT DETECTED; C. PNEUMONIAE- RESP PCR PANEL NOT DETECTED; M. PNEUMONIAE- RESP PCR PANEL NOT DETECTED; PARAINFLUENZA VIRUS 4 NOT DETECTED; RSV- RESP PCR PANEL NOT DETECTED
--- NOTE | 2020-07-09 16:53 | PHARMACY PROGRESS NOTE ---
- Best Possible Medication History Admit Date and Time: 07/09/20 1534 Processed by: Nursing Medication History completed: Yes Patient Interview: Completed Secondary Source(s): Physician records, Pharmacy records, Insurance records (med rec completed by nursing ) As the person ultimately responsible for medication therapy, providers are able to order a medication from an existing home medication list in [facility] via the "Reconcile Routine" prior to Confirmation of that medication by application support administrator. Such practice is discouraged except when the physician, in their clinical judgment, deems that a medical need exists for a medication without regard to previous use.
[2020-07-09] MEDS: SODIUM CHLORIDE 0.9% 1,000 ML IV SCH (16:54)
[2020-07-09] MEDS ORDERED: RIVAROXABAN 10 MG TABLET PO SCH (17:00)
[2020-07-09 17:06] LABS: ABSOLUTE RETICS # AUTO 0.061 10^6/uL (0.020-0.110); RED BLOOD COUNT 3.04 10^6/uL (4.20-5.40); RETICULOCYTE COUNT % (AUTO) 2.01 % (0.5-2.3)
[2020-07-09] MEDS: SODIUM CHLORIDE FLUSH 0.9% 10 ML SYRINGE IVP SCH ×2 (17:11→23:29)
[2020-07-09] MEDS: SACCHAROMYCES BOULARDII 250 MG CAPSULE PO SCH (17:55)
[2020-07-09] MEDS: diltiaZEM CD 120 MG CAPSULE PO SCH (17:55)
[2020-07-09 17:56] LABS: FERRITIN 76.4 ng/mL (11.0-306.8)
[2020-07-09 18:13] LABS: % IRON SATURATION 49 % (20-50); IRON 174 ug/dL (28-170); TOTAL IRON BINDING CAPACITY 356 ug/dL (250-450); TRANSFERRIN 254 mg/dL (192-382)
[2020-07-09] MEDS ORDERED: PANTOPRAZOLE 40 MG TABLET PO SCH (19:00)
[2020-07-09 19:22] LABS: FECAL OCCULT BLOOD (FIT) POSITIVE (NEGATIVE)
[2020-07-09] MEDS: FLECAINIDE 50 MG TABLET PO SCH (20:51)
[2020-07-09] MEDS: GABAPENTIN 300 MG CAPSULE PO SCH (20:51)
[2020-07-09 23:02] LABS: HCT - HEMATOCRIT 24.2 % (37.0-47.0); HGB - HEMOGLOBIN 7.7 g/dL (12.0-16.0)
[2020-07-10] MEDS: SODIUM CHLORIDE 0.9% 1,000 ML IV SCH (02:42)
[2020-07-10 05:16] LABS: BASOPHILS % (AUTO) 0.3 %; EOSINOPHILS % (AUTO) 0.2 %; HCT - HEMATOCRIT 22.5 % (37.0-47.0); HGB - HEMOGLOBIN 7.1 g/dL (12.0-16.0); LYMPHOCYTES # (AUTO) 3.1 10^3/uL (1.5-3.5); LYMPHOCYTES % (AUTO) 26.2 %; MEAN CORPUSCULAR HEMOGLOBIN 30.9 pg (27.0-31.0); MEAN CORPUSCULAR HGB CONC 31.6 g/dL (32.0-36.0); MEAN CORPUSCULAR VOLUME 97.8 fL (81.0-99.0); MEAN PLATELET VOLUME 9.9 fL (7.9-10.8); MONOCYTES # (AUTO) 1.1 10^3/uL (0.0-1.0); NEUTROPHILS # (AUTO) 7.6 10^3/uL (1.5-6.6); NEUTROPHILS % (AUTO) 63.9 %; PLT - PLATELET COUNT 300 10^3/uL (130-450); RED CELL DISTRIBUTION WIDTH 13.9 % (12.0-15.0); WHITE BLOOD COUNT 11.8 x10^3/uL (4.8-10.8)
[2020-07-10 05:25] LABS: CALCIUM 8.3 mg/dL (8.5-10.3); CREATININE 0.8 mg/dL (0.4-1.0); POTASSIUM 3.1 mmol/L (3.5-5.0)
[2020-07-10] MEDS: SACCHAROMYCES BOULARDII 250 MG CAPSULE PO SCH ×2 (07:58→17:57)
[2020-07-10] MEDS ORDERED: POTASSIUM CHLORIDE 20 MEQ TABLET PO ONE (08:00)
[2020-07-10] MEDS ORDERED: cefTRIAXone 1 GM in SODIUM CHLORIDE 0.9% MINIBAG 100 ML IV SCH ×2 (09:00→12:00)
[2020-07-10] MEDS ORDERED: diltiaZEM CD 120 MG CAPSULE PO SCH (09:00)
[2020-07-10] MEDS ORDERED: cefTRIAXone 2 GM in SODIUM CHLORIDE 0.9% MINIBAG 100 ML IV SCH (09:00)
[2020-07-10] MEDS: PANTOPRAZOLE 40 MG VIAL IVP SCH ×2 (09:23→21:14)
[2020-07-10] MEDS: GABAPENTIN 300 MG CAPSULE PO SCH ×2 (09:24→21:14)
[2020-07-10] MEDS: SODIUM CHLORIDE FLUSH 0.9% 10 ML SYRINGE IVP SCH ×2 (09:24→17:57)
[2020-07-10] MEDS: FLECAINIDE 50 MG TABLET PO SCH ×2 (09:24→21:13)
[2020-07-10] MEDS: diltiaZEM CD 120 MG CAPSULE PO SCH (09:24)
--- NOTE | 2020-07-10 13:02 | ANESTHESIA ---
Pre-Anesthesia VS, & Labs - Diagnosis GI bleed - Procedure EGD Vital Signs: Temp Pulse Resp BP Pulse Ox 36.8 C 95 18 126/59 L 99 07/10/20 11:45 07/10/20 11:45 07/10/20 11:45 07/10/20 11:45 07/10/20 09:00 Height: 5 ft 2 in Weight (kg): 105 kg Body Mass Index: 42.3 BMI Classification: Morbidly Obese - NPO >8 hours - Is Patient ?: No - Lab Results Current Lab Results: Laboratory Tests 07/10/20 07:35: Blood Type O POSITIVE, Antibody Screen NEGATIVE, Crossmatch IS Only See Detail 07/10/20 05:00: Blood Type Recheck O POSITIVE 07/10/20 04:35: Sodium 141, Potassium 3.1 L, Chloride 108, Carbon Dioxide 26, Anion Gap 7.0, BUN 46 H, Creatinine 0.8, Estimated GFR (MDRD) 70 L, Glucose 122 H, Calcium 8.3 L 07/10/20 04:35: WBC 11.8 H, RBC 2.30 L, Hgb 7.1 L, Hct 22.5 L, MCV 97.8, MCH 30.9, MCHC 31.6 L, RDW 13.9, Plt Count 300, MPV 9.9, Neut # (Auto) 7.6 H, Lymph # (Auto) 3.1, Toole # (Auto) 1.1 H, Eos # (Auto) 0.0, Baso # (Auto) 0.0, Absolute Nucleated RBC 0.00, Nucleated RBC % 0.0 07/09/20 22:54: Hgb 7.7 L, Hct 24.2 L 07/09/20 20:34: Troponin I High Sens 12.5 07/09/20 17:06: Lactate Dehydrogenase 98 07/09/20 10:30: Ferritin 76.4, Vitamin B12 225 07/09/20 10:30: Iron 174 H, TIBC 356, % Saturation 49, Transferrin 254 07/09/20 10:30: RBC 3.04 L, Reticulocyte % (Auto) 2.01, Absolute Retic 0.061 07/09/20 10:30: Lactic Acid 1.7 07/09/20 10:30: Sodium 135, Potassium 3.6, Chloride 99 L, Carbon Dioxide 25, Anion Gap 11.0, BUN 75 H, Creatinine 0.9, Estimated GFR (MDRD) 61 L, Glucose 147 H, Calcium 9.1, Total Bilirubin 0.8, AST 13, ALT 16, Alkaline Phosphatase 49, Total Protein 7.1, Albumin 3.8, Globulin 3.3, Albumin/Globulin Ratio 1.2 07/09/20 10:30: WBC 13.5 H, RBC 3.02 L, Hgb 9.8 L, Hct 28.9 L, MCV 95.7, MCH 32.5 H, MCHC 33.9, RDW 13.4, Plt Count 361, MPV 9.5, Neut # (Auto) 11.4 H, Lymph # (Auto) 1.4 L, Toole # (Auto) 0.6, Eos # (Auto) 0.0, Baso # (Auto) 0.0, Absolute Nucleated RBC 0.00, Nucleated RBC % 0.0 07/09/20 10:07: TSH 0.66 Lab results reviewed: Yes Fish Bones: 07/10/20 04:35 07/10/20 04:35 Home Medications and Allergies Home Medications: Ambulatory Orders Diltiazem HCl [Tiazac] 120 mg PO DAILY 07/09/20 Flecainide [Tambocar] 1 tab BID 07/09/20 Lisinopril/Hydrochlorothiazide [Zestoretic 20-25 mg Tablet] 1 tab DAILY 07/09/20 Rivaroxaban [Xarelto] 20 mg DAILY 07/09/20 Active Medications Acetaminophen (Acetaminophen 325 Mg Tablet) 650 mg PO Q4HR PRN PRN Reason: Pain 1 to 4 Diltiazem HCl (Diltiazem Cd 120 Mg Capsule) 120 mg PO DAILY [facility] Last Admin: 07/10/20 09:24 Dose: 120 mg Documented by: Flecainide Acetate (Flecainide 50 Mg Tablet) 50 mg PO BID [facility] Last Admin: 07/10/20 09:24 Dose: 50 mg Documented by: Gabapentin (Gabapentin 300 Mg Capsule) 900 mg PO DAILY [facility] Last Admin: 07/10/20 09:24 Dose: 900 mg Documented by: Gabapentin (Gabapentin 300 Mg Capsule) 1,200 mg PO QPM [facility] Last Admin: 07/09/20 20:51 Dose: 1,200 mg Documented by: Ceftriaxone Sodium 1 gm/ (Sodium Chloride) 100 mls @ 200 mls/hr IV DAILY [facility] Last Admin: 07/10/20 12:29 Dose: 200 mls/hr Documented by: Ondansetron HCl (Ondansetron 4 Mg/2 Ml Vial) 4 mg IVP Q6HR PRN PRN Reason: Nausea / Vomiting Last Admin: 07/09/20 22:13 Dose: 4 mg Documented by: Oxycodone HCl (Oxycodone 5 Mg Tablet) 5 mg PO Q4HR PRN PRN Reason: Pain 5 to 7 Pantoprazole Sodium (Pantoprazole 40 Mg Vial) 40 mg IVP BID [facility] Last Admin: 07/10/20 09:23 Dose: 40 mg Documented by: Saccharomyces Boulardii (Saccharomyces Boulardii 250 Mg Capsule) 250 mg PO BIDWM [facility] Last Admin: 07/10/20 07:58 Dose: 250 mg Documented by: Sodium Chloride (Sodium Chloride Flush 0.9% 10 Ml Syringe) 10 ml IVP PRN PRN PRN Reason: NEEDED PER PROVIDER ORDERS Sodium Chloride (Sodium Chloride Flush 0.9% 10 Ml Syringe) 10 ml IVP 0100,09 00,1700 [facility] Last Admin: 07/10/20 09:24 Dose: 10 ml Documented by: Gabapentin [Neurontin] 300 mg PO BID 07/24/14 Diltiazem HCl [Tiazac] 120 mg PO DAILY 07/09/20 Flecainide [Tambocar] 1 tab BID 07/09/20 Lisinopril/Hydrochlorothiazide [Zestoretic 20-25 mg Tablet] 1 tab DAILY 07/09/20 Rivaroxaban [Xarelto] 20 mg DAILY 07/09/20 Allergies/Adverse Reactions: Allergies Allergy/AdvReac Type Severity Reaction Status Date / Time Beta-Blockers Allergy Respiratory Verified 07/09/20 09:51 (Beta-Adrenergic Bloc cephalexin [From Keflex] Allergy Unknown Verified 07/09/20 09:51 Penicillins Allergy Rash Verified 07/09/20 09:51 pentazocine lactate * Allergy Hallucinati Verified 07/09/20 09:51 [From Memo] ons Anes History & Medical History - Anesthetic History Anesthesia Complications: reports: Post-Operative Nausea/Vomiting Family history of Anesthesia Complications: Denies Family history of Malignant Hyperthermia: Denies - Medical History Cardiovascular: reports: Hypertension, Atrial fibrillation Pulmonary: reports: None Gastrointestinal: reports: GI bleed Urinary: reports: None Neuro: reports: None Musculoskeletal: reports: Osteoarthritis Endocrine/Autoimmune: reports: None Blood Disorders: reports: None Skin: reports: None Smoking Status: Never smoker - Surgical History General: reports: Cholecystectomy Orthopedic: reports: Knee replacement Exam General: Alert, Oriented x3, Cooperative, No acute distress Dental: WNL Mouth Openin Fingerbreadth Neck Mobility: Normal Mallampati classification: II Respiratory: Lungs clear, Normal breath sounds, No respiratory distress, No accessory muscle use Cardiovascular: No murmurs Plan Anesthesia Type: General, Total IV Consent for Procedure(s) Verified and Reviewed: Yes Code Status: Attempt Resuscitation (Modified Code: Patient ok with medications and defibrillation but no chest compressions) ASA classification: 3-Severe systemic disease Is this case an emergency?: No
[2020-07-10] MEDS ORDERED: SODIUM CHLORIDE 0.9% 1,000 ML IV SCH ×2 (14:00→18:00)
[2020-07-10 14:31] LABS: HGB - HEMOGLOBIN 8.8 g/dL (12.0-16.0)
[2020-07-10] MEDS ORDERED: ATROPINE ABBOJECT 1 MG/10 ML SYRINGE IVP PRN (14:57)
[2020-07-10] MEDS ORDERED: HYDROmorphone 0.5 MG/0.5 ML SYRINGE IVP PRN (14:57)
[2020-07-10] MEDS ORDERED: NALOXONE 0.4 MG/ML VIAL IVP PRN (14:57)
[2020-07-10] MEDS ORDERED: ePHEDrine 50 MG/ML VIAL IVP PRN (14:57)
[2020-07-10] MEDS ORDERED: fentaNYL 100 MCG/2 ML VIAL IVP PRN (14:57)
[2020-07-10] MEDS ORDERED: MORPHINE 2 MG/ML CARPUJECT IVP PRN (14:57)
[2020-07-10] MEDS ORDERED: METOCLOPRAMIDE 10 MG/2 ML VIAL IVP PRN (14:57)
[2020-07-10] MEDS ORDERED: LACTATED RINGERS 1,000 ML IV SCH (15:00)
[2020-07-10] MEDS ORDERED: PROPOFOL 200 MG/20 ML VIAL IVP ONE (16:06)
[2020-07-10] MEDS ORDERED: LIDOCAINE-MPF 2% 5 ML VIAL ONE (16:06)
--- NOTE | 2020-07-10 16:10 | HISTORY & PHYSICAL EXAMINATION ---
Chief Complaint - Chief Complaint Chief Complaint: weakness. History of Present Illness - Admitted From Admitted From:: ED - History Obtained From Records Reviewed: yes History obtained from: pt Exam Limitations: none - History of Present Illness HPI Comment/Other: Admitted with weakness and found to have a UTI. Her hct is down today and surgery is consulted. She states she had a dark stool today and yesterday. Prior to 2 days ago she had normal bms. She has had epigastric pain for the last month. No trouble eating, swallowing. No weight loss. No lower intestinal symptoms. No recent colon cancer screening. She is on anticoagulation for chronic afib. She is receiving blood today. History - Past Medical History Cardiovascular: reports: Hypertension, Atrial fibrillation Respiratory: reports: None Neuro: reports: None Endocrine/Autoimmune: reports: None GI: reports: GI bleed : reports: None Musculoskeletal: reports: Osteoarthritis Derm: reports: None - Past Surgical History General: reports: Cholecystectomy Ortho: reports: Knee replacement - Family & Social History Family History: Mother: , Father: Family History Comment/Other: Patient report her father at age 93 from aging, Her mother also at age 93. Her brother at age 82 from heart failure. Social History Notes: Patient denying history of cigarette smoking, social alcohol drinking without Issue, Or drug issue Meds/Allgy - Home Medications Home Medications: Ambulatory Orders Medication Instructions Recorded Confirmed Gabapentin [Neurontin] 300 mg PO BID 07/24/14 07/09/20 Cefpodoxime Proxetil [Vantin] 100 mg PO Q12H 10 Days #20 tablet 07/09/20 Diltiazem HCl [Tiazac] 120 mg PO DAILY 07/09/20 07/09/20 Flecainide [Tambocar] 1 tab BID 07/09/20 07/09/20 Lisinopril/Hydrochlorothiazide 1 tab DAILY 07/09/20 07/09/20 [Zestoretic 20-25 mg Tablet] Rivaroxaban [Xarelto] 20 mg DAILY 07/09/20 07/09/20 - Allergies Allergies/Adverse Reactions: Allergies Allergy/AdvReac Type Severity Reaction Status Date / Time Beta-Blockers Allergy Respiratory Verified 07/09/20 09:51 (Beta-Adrenergic Bloc cephalexin [From Keflex] Allergy Unknown Verified 07/09/20 09:51 Penicillins Allergy Rash Verified 07/09/20 09:51 pentazocine lactate * Allergy Hallucinati Verified 07/09/20 09:51 [From Talwin] ons Review of Systems - Constitutional Constitutional: reports: Fatigue (10 pt ros as above otherwise unremarkable) Exam - Vital Signs Reviewed Vital Signs: Yes Vital Signs: Vital Signs x48h Temp Pulse Pulse Pulse Pulse Resp BP 07/10/20 15:46 36.8 C 101 H 18 07/10/20 13:55 106 H 95 07/10/20 13:00 36.5 C 90 16 07/10/20 11:45 36.8 C 95 18 126/59 L 07/10/20 09:20 36.5 C 91 18 130/56 L 07/10/20 09:05 36.6 C 89 18 130/52 L 07/10/20 09:00 36.6 C 90 92 18 129/56 L BP BP BP Pulse Ox 07/10/20 15:46 134/55 H 96 07/10/20 13:55 123/62 130/64 07/10/20 13:00 120/69 99 07/10/20 11:45 07/10/20 09:20 07/10/20 09:05 07/10/20 09:00 129/56 L 99 - Physical Exam General Appearance: positive: No acute distress, Alert Eyes Bilateral: positive: Normal inspection, PERRL, EOMI ENT: positive: No signs of dehydration Neck: positive: No JVD Respiratory: positive: No respiratory distress, Breath sounds nml Cardiovascular: positive: Irregularly irregular Abdomen: positive: Non-tender, No distention Neurologic/Psychiatric: positive: Oriented x3 Sepsis Event Note (H) - Evaluation Current Stage of Sepsis: Ruled out Conclusion/Plan - Problem List (1) Complaint of melena Conclusion/Plan: plan egd. parq held and consent obtained - Lab Results Lab results reviewed: Yes Fish Bones: 07/10/20 14:18 07/10/20 04:35
--- NOTE | 2020-07-10 16:51 | OPERATIVE REPORT ---
Operative Report - General Admit Date: 07/10/20 Procedure Date: 07/10/20 Planned Procedure: egd Pre-Op Diagnosis: epigastric pain, dark stool, anemia Procedure Performed: egd Post Op Diagnosis: normal egd/ stomach, esophagus, duodenum - Procedure Note Primary Surgeon: rosalia reyes Anesthesia Technique: MAC Pathology: none Estimated Blood Loss (mL): 0 Complications: none
--- NOTE | 2020-07-10 16:59 | ANESTHESIA POST OP EVALUATION ---
Anesthesia Post Eval - Post Anesthesia Eval Vitals: Last Vital Signs Temp 36.8 C 07/10/20 16:55 Pulse 89 07/10/20 16:55 Resp 18 07/10/20 16:55 BP 130/61 07/10/20 16:55 Pulse Ox 99 07/10/20 16:55 CV Function Including HR & BP: Stable Pain Control: Satisfactory Nausea & Vomiting: Negative Mental Status: Baseline Respiratory Status: Airway Patent Hydration Status: Satisfactory Anesthesia Complications: None
--- NOTE | 2020-07-10 17:15 | PROVIDER PROGRESS NOTE ---
Assessment/Plan - Problem List (1) GI bleed Assessment/Plan: Patient's occult test is positive, HGB is significantly drop, and elevated BUN pt had EGD done but it is negative acute bleeding site or ulcers. it is complete normal. pt had one unit of blood transfusion. continue H&H, if HGB continue drop, pt may need colonoscopy or CT of abdomen/pelvis to find etiology. (2) Generalized weakness Conclusion/Plan: continue consult with PT/OT on tomorrow, followup with recommendation Patient present some dehydration and possible urinary tract infection, and profound weakness. we will consult with physical therapist occupational therapist, Continue give patient intravenous IV fluids. (3) Atrial fibrillation with rapid ventricular response Conclusion/Plan: HR is controlled. hold her blood thinner for GI bleed Patient had Tachycardia HR is 112. Patient denied palpitation or chest pain. EKG is pending. Patient had history of atrial fibrillation. Patient reported she did not take any home medication on today. We will resume patient home medication Cardizem and Flecainide, And Xarelto. equipment monitor phototypesetting patient. (4) Orthostatic intolerance Conclusion/Plan: resolved. hold IVF, fall precaution Patient present dizziness, shaking and difficulty to walk when patient was check ed for orthostatics in the ER. orthostatic blood pressure check did show blood pressure difference in the sitting and standing. Patient present some dehydration. Patient had 2 L of fluid NS in the ER. We will continue give patient intravenous IV fluids, Continue check patient orthostatic Blood press ure, fall Precaution, Consult with PT and OT. (6) UTI (urinary tract infection) Conclusion/Plan: UA culture is negative, hold antibiotics Patient has history frequent UTI, patient had elevated esterase in the urinalysis,Patient present shaking, complain of chilly, and elevated WBC, lactic acid is normal arrange. And she was treated intravenous antibiotics in the ER, We will continue to treat with intravenous antibiotics, urinalysis is pending, we will check TSH for pt feeling of chilly and feeling of cold. order probiotics. (7) Hypertension Conclusion/Plan: Stable, we will hold his HCTZ/Lisinopril of her home medication, patient had orthostatic intolerance. (8) Anemia Conclusion/Plan: pt had one unit blood transfusion, it is likely caused by acute GI bleed, kalp[place] nue H&H monitor. Today patient hemoglobin is 9.8, her hemoglobin drop from 12.8 about 6 months ago, And her BUN 75. Patient did not know if she has dark stool. We will check occult blood stool test, and anemia study. - Current Meds Current Meds: Current Medications Generic Name Dose Route Start Last Admin Trade Name Nicole PRN Reason Stop Dose Admin Diltiazem HCl 120 mg 07/09/20 17:27 07/10/20 09:24 Diltiazem Cd 120 Mg Capsule PO 120 mg DAILY SAMIA Administration Flecainide Acetate 50 mg 07/09/20 21:00 07/10/20 09:24 Flecainide 50 Mg Tablet PO 50 mg BID SAMIA Administration Gabapentin 900 mg 07/10/20 09:00 07/10/20 09:24 Gabapentin 300 Mg Capsule PO 900 mg DAILY SAMIA Administration Gabapentin 1,200 mg 07/09/20 21:00 07/09/20 20:51 Gabapentin 300 Mg Capsule PO 1,200 mg QPM SAMIA Administration Ceftriaxone Sodium 1 gm/ 100 mls @ 200 mls/hr 07/10/20 12:00 07/10/20 13:01 Sodium Chloride IV Infused DAILY SAMIA Infusion Sodium Chloride 1,000 mls @ 100 mls/hr 07/10/20 14:00 07/10/20 14:15 Normal Saline 0.9% IV 07/10/20 23:59 100 mls/hr .Q10H SAMIA Administration Ondansetron HCl 4 mg 07/09/20 15:34 07/09/20 22:13 Ondansetron 4 Mg/2 Ml Vial IVP 4 mg Q6HR PRN Administration Nausea / Vomiting Pantoprazole Sodium 40 mg 07/10/20 09:00 07/10/20 09:23 Pantoprazole 40 Mg Vial IVP 40 mg BID SAMIA Administration Saccharomyces Boulardii 250 mg 07/09/20 17:11 07/10/20 07:58 Saccharomyces Boulardii 250 Mg Capsule PO 250 mg BIDWM SAMIA Administration Sodium Chloride 10 ml 07/09/20 17:00 07/10/20 09:24 Sodium Chloride Flush 0.9% 10 Ml Syringe IVP 10 ml 0100,0900,1700 SAMIA Administration - Lab Result Fish Bone Diagrams: 07/10/20 14:18 07/10/20 04:35 - Additional Planning My Orders: My Active Orders 07/09/20 17:00 Sodium Chloride Flush 0.9% [Normal Saline Flush 0.9%] 10 ml IVP 0100,0900,1700 07/09/20 17:11 Saccharomyces Boulardii [Florastor] 250 mg PO BIDWM 07/09/20 17:27 diltiaZEM CD [Cardizem Cd] 120 mg PO DAILY 07/09/20 21:00 Flecainide [Tambocar] 50 mg PO BID Gabapentin [Neurontin] 1,200 mg PO QPM 07/10/20 General Surgery Consult [CONS] Routine 07/10/20 09:00 Gabapentin [Neurontin] 900 mg PO DAILY 07/10/20 12:00 cefTRIAXone [Rocephin] 1 gm Sodium Chloride 0.9% Minibag [Normal Saline 0.9% Minibag] 100 ml IV DAILY 07/10/20 14:00 Sodium Chloride 0.9% [Normal Saline 0.9%] 1,000 ml IV 100 mls/hr 07/10/20 Dinner Soft (Low Fiber) Diet [DIET] 07/10/20 22:00 H&H [HEMOGLOBIN AND HEMATOCRIT] [HEME] Timed 07/11/20 05:00 BMP - BASIC METABOLIC PANEL [CHEM] DAILYLAB CBC - COMP BLD CT W/AUTO DIFF [HEME] DAILYLAB 07/12/20 05:00 BMP - BASIC METABOLIC PANEL [CHEM] DAILYLAB CBC - COMP BLD CT W/AUTO DIFF [HEME] DAILYLAB 07/13/20 05:00 BMP - BASIC METABOLIC PANEL [CHEM] DAILYLAB CBC - COMP BLD CT W/AUTO DIFF [HEME] DAILYLAB Subjective - Subjective Patient Reports: Feeling Better Objective Vital Signs: Vital Signs - 24 hr 07/09/20 07/09/20 07/10/20 20:44 23:43 04:35 Temperature 36.9 C 36.8 C 36.9 C Heart Rate Heart Rate [ Activity] Heart Rate [ 95 97 95 Brachial] Heart Rate [ Sitting] Respiratory 16 18 16 Rate Blood Pressure Blood Pressure [Activity] Blood Pressure 115/73 141/57 H 130/52 L [Right Brachial artery] Blood Pressure [Sitting] O2 Saturation 96 94 97 07/10/20 07/10/20 07/10/20 09:00 09:05 09:20 Temperature 36.6 C 36.6 C 36.5 C Heart Rate 90 89 91 Heart Rate [ Activity] Heart Rate [ 92 Brachial] Heart Rate [ Sitting] Respiratory 18 18 18 Rate Blood Pressure 129/56 L 130/52 L 130/56 L Blood Pressure [Activity] Blood Pressure 129/56 L [Right Brachial artery] Blood Pressure [Sitting] O2 Saturation 99 07/10/20 07/10/20 07/10/20 11:45 13:00 13:55 Temperature 36.8 C 36.5 C Heart Rate 95 Heart Rate [ 106 H Activity] Heart Rate [ 90 Brachial] Heart Rate [ 95 Sitting] Respiratory 18 16 Rate Blood Pressure 126/59 L Blood Pressure 123/62 [Activity] Blood Pressure 120/69 [Right Brachial artery] Blood Pressure 130/64 [Sitting] O2 Saturation 99 07/10/20 07/10/20 15:46 16:55 Temperature 36.8 C 36.8 C Heart Rate Heart Rate [ Activity] Heart Rate [ 101 H 89 Brachial] Heart Rate [ Sitting] Respiratory 18 18 Rate Blood Pressure Blood Pressure [Activity] Blood Pressure 134/55 H 130/61 [Right Brachial artery] Blood Pressure [Sitting] O2 Saturation 96 99 Oxygen O2 Source Room air I&O (Last 24 Hrs): Intake and Output Totals x24h 07/08/20 07/09/20 07/10/20 23:59 23:59 23:59 Intake Total 2400 2450 Output Total 500 1300 Balance 1900 1150 General: Alert, Oriented x3, Cooperative, No acute distress HEENT: Atraumatic Neck: Supple Lymphatic: no adenopathy Neuro: Alert, Non Focal, Oriented Times 3 Cardiovascular: Regular rate, Normal S1, Normal S2 Respiratory: Chest non-tender, No respiratory distress, Breath sounds nml Abdomen: Normal bowel sounds, Soft Extremities: Normal pulses - Results Results: Laboratory Results WBC 11.8 x10^3/uL (4.8-10.8) H 07/10/20 04:35 RBC 2.30 10^6/uL (4.20-5.40) L 07/10/20 04:35 Hgb 8.8 g/dL (12.0-16.0) L 07/10/20 14:18 Hct 27.0 % (37.0-47.0) L 07/10/20 14:18 MCV 97.8 fL (81.0-99.0) 07/10/20 04:35 MCH 30.9 pg (27.0-31.0) 07/10/20 04:35 MCHC 31.6 g/dL (32.0-36.0) L 07/10/20 04:35 RDW 13.9 % (12.0-15.0) 07/10/20 04:35 Plt Count 300 10^3/uL (130-450) 07/10/20 04:35 MPV 9.9 fL (7.9-10.8) 07/10/20 04:35 Reticulocyte % (Auto) 2.01 % (0.5-2.3) 07/09/20 10:30 Neut # (Auto) 7.6 10^3/uL (1.5-6.6) H 07/10/20 04:35 Lymph # (Auto) 3.1 10^3/uL (1.5-3.5) 07/10/20 04:35 [place] # (Auto) 1.1 10^3/uL (0.0-1.0) H 07/10/20 04:35 Eos # (Auto) 0.0 10^3/uL (0.0-0.7) 07/10/20 04:35 Baso # (Auto) 0.0 10^3/uL (0.0-0.1) 07/10/20 04:35 Absolute Nucleated RBC 0.00 x10^3/uL 07/10/20 04:35 Nucleated RBC % 0.0 /100WBC 07/10/20 04:35 Absolute Retic 0.061 10^6/uL (0.020-0.110) 07/09/20 10:30 Sodium 141 mmol/L (135-145) 07/10/20 04:35 Potassium 3.1 mmol/L (3.5-5.0) L 07/10/20 04:35 Chloride 108 mmol/L (101-111) 07/10/20 04:35 Carbon Dioxide 26 mmol/L (21-32) 07/10/20 04:35 Anion Gap 7.0 (6-13) 07/10/20 04:35 BUN 46 mg/dL (6-20) H 07/10/20 04:35 Creatinine 0.8 mg/dL (0.4-1.0) 07/10/20 04:35 Estimated GFR (MDRD) 70 (>89) L 07/10/20 04:35 Glucose 122 mg/dL (70-100) H 07/10/20 04:35 Lactic Acid 1.7 mmol/L (0.5-2.2) 07/09/20 10:30 Calcium 8.3 mg/dL (8.5-10.3) L 07/10/20 04:35 Iron 174 ug/dL (28-170) H 07/09/20 10:30 TIBC 356 ug/dL (250-450) 07/09/20 10:30 % Saturation 49 % (20-50) 07/09/20 10:30 Transferrin 254 mg/dL (192-382) 07/09/20 10:30 Ferritin 76.4 ng/mL (11.0-306.8) 07/09/20 10:30 Total Bilirubin 0.8 mg/dL (0.2-1.0) 07/09/20 10:30 AST 13 IU/L (10-42) 07/09/20 10:30 ALT 16 IU/L (10-60) 07/09/20 10:30 Alkaline Phosphatase 49 IU/L (42-121) 07/09/20 10:30 Lactate Dehydrogenase 98 IU/L (91-225) 07/09/20 17:06 Troponin I High Sens 12.5 ng/L (2.3-14.8) 07/09/20 20:34 Total Protein 7.1 g/dL (6.7-8.2) 07/09/20 10:30 Albumin 3.8 g/dL (3.2-5.5) 07/09/20 10:30 Globulin 3.3 g/dL (2.1-4.2) 07/09/20 10:30 Albumin/Globulin Ratio 1.2 (1.0-2.2) 07/09/20 10:30 Vitamin B12 225 pg/mL (180-914) 07/09/20 10:30 TSH 0.66 uIU/mL (0.34-5.60) 07/09/20 10:07 Urine Color YELLOW 07/09/20 11:45 Urine Clarity CLEAR (CLEAR) 07/09/20 11:45 Urine pH 5.5 PH (5.0-7.5) 07/09/20 11:45 Ur Specific [place] 1.010 (1.002-1.030) 07/09/20 11:45 Urine Protein NEGATIVE mg/dL (NEGATIVE) 07/09/20 11:45 Urine Glucose (UA) NEGATIVE mg/dL (NEGATIVE) 07/09/20 11:45 Urine Ketones NEGATIVE mg/dL (NEGATIVE) 07/09/20 11:45 Urine Occult Blood NEGATIVE (NEGATIVE) 07/09/20 11:45 Urine Nitrite NEGATIVE (NEGATIVE) 07/09/20 11:45 Urine Bilirubin NEGATIVE (NEGATIVE) 07/09/20 11:45 Urine Urobilinogen 0.2 (NORMAL) E.U./dL (NORMAL) 07/09/20 11:45 Ur Leukocyte Esterase MODERATE (NEGATIVE) H 07/09/20 11:45 Urine RBC SHOP WELDER 07/09/20 11:45 Urine WBC SHOP WELDER 07/09/20 11:45 Ur Squamous Epith Cells SHOP WELDER 07/09/20 11:45 Urine Bacteria SHOP WELDER 07/09/20 11:45 Urine Culture Comments INDICATED 07/09/20 11:45 Nasal Adenovirus (PCR) NOT DETECTED 07/09/20 15:49 Nasal B. parapertussis DNA (PCR) NOT DETECTED 07/09/20 15:49 Nasal Coronavir 229E PCR NOT DETECTED 07/09/20 15:49 Nasal Coronavir HKU1 PCR NOT DETECTED 07/09/20 15:49 Nasal Coronavir NL63 PCR NOT DETECTED 07/09/20 15:49 Nasal Coronavir OC43 PCR NOT DETECTED 07/09/20 15:49 Nasal Enterovir/Rhinovir PCR NOT DETECTED 07/09/20 15:49 Nasal Influenza B PCR NOT DETECTED 07/09/20 15:49 Nasal Influenza A PCR NOT DETECTED 07/09/20 15:49 Nasal Parainfluen 1 PCR NOT DETECTED 07/09/20 15:49 Nasal Parainfluen 2 PCR NOT DETECTED 07/09/20 15:49 Nasal Parainfluen 3 PCR NOT DETECTED 07/09/20 15:49 Nasal Parainfluen 4 PCR NOT DETECTED 07/09/20 15:49 Nasal RSV (PCR) NOT DETECTED 07/09/20 15:49 Nasal B.pertussis DNA PCR NOT DETECTED 07/09/20 15:49 Nasal C.pneumoniae (PCR) NOT DETECTED 07/09/20 15:49 Justin Human Metapneumo PCR NOT DETECTED 07/09/20 15:49 Nasal M.pneumoniae (PCR) NOT DETECTED 07/09/20 15:49 Nasal SARS-CoV-2 (PCR) NOT DETECTED 07/09/20 15:49 Stl Occult Blood (IFOB) POSITIVE (NEGATIVE) A 07/09/20 19:15 Blood Type O POSITIVE 07/10/20 07:35 Blood Type Recheck O POSITIVE 07/10/20 05:00 Antibody Screen NEGATIVE 07/10/20 07:35 Crossmatch IS Only See Detail 07/10/20 07:35 Sepsis Event Note (H) - Evaluation Current Stage of Sepsis: Ruled out ABX Reporting Has patient been on IV antibiotics over the past 48 hours?: Yes Current Medications - Current Medications Current Medications: Active Medications Acetaminophen (Acetaminophen 325 Mg Tablet) 650 mg PO Q4HR PRN PRN Reason: Pain 1 to 4 Atropine Sulfate (Atropine Abboject 1 Mg/10 Ml Syringe) 0.5 mg IVP Q5M PRN PRN Reason: Bradycardia Stop: 07/11/20 14:57 Diltiazem HCl (Diltiazem Cd 120 Mg Capsule) 120 mg PO DAILY [facility] Last Admin: 07/10/20 09:24 Dose: 120 mg Documented by: Ephedrine Sulfate (Ephedrine 50 Mg/Ml Vial) 10 mg IVP Q5M PRN PRN Reason: HYPOTENSION Stop: 07/11/20 14:57 Fentanyl (Fentanyl 100 Mcg/2 Ml Vial) 25 - 50 mcg IVP Q5M PRN PRN Reason: BREAKTHROUGH PAIN (2nd Choice) Stop: 07/11/20 14:57 Flecainide Acetate (Flecainide 50 Mg Tablet) 50 mg PO BID [facility] Last Admin: 07/10/20 09:24 Dose: 50 mg Documented by: Gabapentin (Gabapentin 300 Mg Capsule) 900 mg PO DAILY [facility] Last Admin: 07/10/20 09:24 Dose: 900 mg Documented by: Gabapentin (Gabapentin 300 Mg Capsule) 1,200 mg PO QPM [facility] Last Admin: 07/09/20 20:51 Dose: 1,200 mg Documented by: Hydromorphone HCl (Hydromorphone 0.5 Mg/0.5 Ml Syringe) 0.2 - 0.6 mg IVP Q5M PRN PRN Reason: PAIN (First Choice) Stop: 07/11/20 14:57 Lactated Ringer's (Lr) 1,000 mls @ 100 mls/hr IV .Q10H [facility] Stop: 07/11/20 00:59 Metoclopramide HCl (Metoclopramide 10 Mg/2 Ml Vial) 10 mg IVP Q6HR PRN PRN Reason: N/V not relieved by Zofran Morphine Sulfate (Morphine 2 Mg/Ml Carpuject) 2 - 4 mg IVP Q5M PRN PRN Reason: PAIN (3rd Choice) Stop: 07/11/20 14:57 Naloxone HCl (Naloxone 0.4 Mg/Ml Vial) 0.1 mg IVP Q2M PRN PRN Reason: RESP RATE <8 Stop: 07/11/20 14:57 Ondansetron HCl (Ondansetron 4 Mg/2 Ml Vial) 4 mg IVP Q6HR PRN PRN Reason: Nausea / Vomiting Last Admin: 07/09/20 22:13 Dose: 4 mg Documented by: Oxycodone HCl (Oxycodone 5 Mg Tablet) 5 mg PO Q4HR PRN PRN Reason: Pain 5 to 7 Pantoprazole Sodium (Pantoprazole 40 Mg Vial) 40 mg IVP BID [facility] Last Admin: 07/10/20 09:23 Dose: 40 mg Documented by: Saccharomyces Boulardii (Saccharomyces Boulardii 250 Mg Capsule) 250 mg PO BIDWM [facility] Last Admin: 07/10/20 07:58 Dose: 250 mg Documented by: Sodium Chloride (Sodium Chloride Flush 0.9% 10 Ml Syringe) 10 ml IVP PRN PRN PRN Reason: NEEDED PER PROVIDER ORDERS Sodium Chloride (Sodium Chloride Flush 0.9% 10 Ml Syringe) 10 ml IVP 0100,0900,1700 [facility] Last Admin: 07/10/20 09:24 Dose: 10 ml Documented by: Gabapentin [Neurontin] 300 mg PO BID 07/24/14 Diltiazem HCl [Tiazac] 120 mg PO DAILY 07/09/20 Flecainide [Tambocar] 1 tab BID 07/09/20 Lisinopril/Hydrochlorothiazide [Zestoretic 20-25 mg Tablet] 1 tab DAILY 07/09/20 Rivaroxaban [Xarelto] 20 mg DAILY 07/09/20
[2020-07-10 22:15] LABS: HCT - HEMATOCRIT 24.6 % (37.0-47.0)
[2020-07-11 05:35] LABS: BASOPHILS # (AUTO) 0.1 10^3/uL (0.0-0.1); BASOPHILS % (AUTO) 0.6 %; EOSINOPHILS # (AUTO) 0.2 10^3/uL (0.0-0.7); EOSINOPHILS % (AUTO) 1.5 %; HCT - HEMATOCRIT 22.9 % (37.0-47.0); HGB - HEMOGLOBIN 7.4 g/dL (12.0-16.0); LYMPHOCYTES # (AUTO) 3.1 10^3/uL (1.5-3.5); LYMPHOCYTES % (AUTO) 30.3 %; MEAN CORPUSCULAR HGB CONC 32.3 g/dL (32.0-36.0); MEAN CORPUSCULAR VOLUME 95.8 fL (81.0-99.0); MEAN PLATELET VOLUME 9.8 fL (7.9-10.8); MONOCYTES % (AUTO) 9.6 %; NEUTROPHILS # (AUTO) 5.9 10^3/uL (1.5-6.6); NEUTROPHILS % (AUTO) 57.5 %; PLT - PLATELET COUNT 259 10^3/uL (130-450); RED BLOOD COUNT 2.39 10^6/uL (4.20-5.40); RED CELL DISTRIBUTION WIDTH 15.7 % (12.0-15.0); WHITE BLOOD COUNT 10.2 x10^3/uL (4.8-10.8)
[2020-07-11 05:47] LABS: CALCIUM 7.8 mg/dL (8.5-10.3); CREATININE 0.7 mg/dL (0.4-1.0); POTASSIUM 3.4 mmol/L (3.5-5.0)
[2020-07-11] MEDS: GABAPENTIN 300 MG CAPSULE PO SCH (08:56)
[2020-07-11] MEDS: PANTOPRAZOLE 40 MG VIAL IVP SCH (08:57)
[2020-07-11] MEDS: diltiaZEM CD 120 MG CAPSULE PO SCH (08:57)
[2020-07-11] MEDS: FLECAINIDE 50 MG TABLET PO SCH (08:57)
[2020-07-11] MEDS: SODIUM CHLORIDE FLUSH 0.9% 10 ML SYRINGE IVP SCH (09:00)
[2020-07-11] MEDS: SACCHAROMYCES BOULARDII 250 MG CAPSULE PO SCH (09:03)
[2020-07-11] MEDS: POTASSIUM CHLOR 10 MEQ/100 ML 10 MEQ/100 ML BAG IV SCH ×2 (11:19→12:54)
[2020-07-11 12:30] LABS: HCT - HEMATOCRIT 25.1 % (37.0-47.0)
[2020-07-11] MEDS ORDERED: PANTOPRAZOLE 40 MG TABLET PO SCH (13:00)
[2020-07-11 13:59] VITALS: BP 127/79
[2020-07-11] MEDS ORDERED: FERROUS GLUCONATE 324 MG TABLET PO SCH (14:00)
--- NOTE | 2020-07-11 14:11 | Discharge Plan ---
Discharge Plan Problem Reviewed?: Yes Disposition: Home, Self Care Condition: Fair Prescriptions: Lactobacillus Acidophilus [Acidophilus Probiotic] 1 each PO DAILY #7 cap Iron Polysaccharide Complex [Ferrex 150] 150 mg PO DAILY #30 cap Pantoprazole [Protonix] 40 mg PO BID #60 tablet Cefpodoxime Proxetil [Vantin] 100 mg PO Q12H 10 Days #20 tablet Diet: Soft (No spicy food) Activity Restrictions: Activity as Tolerated Shower Restrictions: No Instruction Topics: ED Bleed UGI Stable, ED UTI Cystitis Female Health Concerns: You were admitted to the hospital because your blood pressure dropped when you were upright which made you lightheaded, and the cause of that was found to be 1) anemia from GI bleeding and 2) dehydration from a urinary tract infection. You are being discharged to take several more days of antibiotics for the urinary tract infection, and a probiotic to prevent diarrhea. You should remain off the Xarelto medication because of the recent GI bleeding. You need to see your PCP or Dr. Rachel, of General Surgery, who did the endoscopy, to be okay'd to resume Xarelto, the blood thinner. You should also not take any aspirin or aspirin-like products (Motrin, Advil) which can cause intestinal bleeding. You are being prescribed a new anti-ulcer medication, and Iron replacement pills. All the new prescriptions were electronically sent to your [facility] pharmacy. Do not take your Lisinopril/HCTZ medication for about a week, because of your orthostatic blood pressure drop. Resume taking all your other pre-hospital medications. Plan of Treatment: As above. Care Goals: Improvement in symptoms and stabilization are the goals. Assessment: Patient understands and is agreeable with the plan. Additional Instructions or Follow Up instructions: Call yor doctor or return to the emergency department if you experience any new or worsening symptoms or have other concerns. Follow-up with your primary doctor this upcoming week. No Smoking: If you smoke, Please STOP! Call for help. Follow-up with: Yolanda Kyle DO [Primary Care Provider] -
--- NOTE | 2020-07-11 14:53 | DISCHARGE SUMMARY ---
Discharge Summary Admit Date: 07/09/20 Discharge Date: 07/11/20 Discharging Provider: Dr Mae Medina Primary Care Provider: Dr Yolanda Kyle Condition at Discharge: Fair Discharge Disposition: 01 Home, Self Care - HPI History of Present Illness: From the admission H&P of Alex Vargas NP: This is a 79-years old white female with a past medical history significant for hypertension, A fibrillation, frequently UTI, and obesity who present ER complain of profound Weakness. Patient report she feel so weakness even she was difficulty to walk to the bathroom or 10 feet. She was living alone in [place], her girlfriend to try to help her but she cannot do that because she has a job. She reported she believe she had a "boil" on upper inner left thigh, but now it is healed. She report she had frequent UTI in the past, but at this time she denies burning or pain on urination, but she feel very cold and gets chills and shaking, but had no fever at home. She reported she had a few times of vomiting in this morning. She denies chest pain, fever, shortness of breathing, diarrhea. Lab test in the ER show patient had elevated WBC at 13.8, moderate elevated Leukocyte esterase in urine and a possible UTI. Also she has a significant elevated BUN of 75. Hemoglobin is 9.8 now decreased from 12.8 about 6 months ago. In the ER, patient is afebrile, patient had sinus tachycardia at 112, pt has slightly elevated blood pressure, patient has no tachypnea, patient has 98% sats on room air. Discussed the care goal with the patient, patient clearly state she is DNR - HOSPITAL COURSE Hospital Course: (1) GI bleed She admitted to having black stool, on review of symptoms. This explained her elevated BUN/creat ratio. Patient's occult blood guaic test was positive. Her Hgb significantly dropped (9.8>> 7.7 the next day) and a General Surgery consult was requested for scoping. She underwent EGD but it was negative for any acute bleeding site or ulcers, it was reported as normal. She was sent home on empiric ulcer meds and advised to see PCP for follow-up and possible further colonoscopy or CT of abdomen/pelvis to find etiology. (2) Anemia from GI blood loss Her admission hemoglobin was 9.8, whereas her hemoglobin was 12.8 about 6 months ago. The BUN of 75 suggested a GI bleed. Her Hgb dropped to 7.7>> 7.1 and she got a blood transfusion. Hgb then improved to 8.8 and at discharge was 8.0. She was sent home on oral Iron replacement. (3) Generalized weakness This was felt to be from GI blood loss anemia and dehydration from a possible urinary tract infection. She received iv fluids, a blood transfusion, empiric antibiotics and was seen by physical therapist and occupational therapist. (4) Orthostatic intolerance Patient presented with dizziness, shaking and difficulty to walk when patient was checked for orthostatics in the ER. orthostatic blood pressure check did show asignificant drop from sitting to standing. Patient got 2 L of fluid NS in the ER, then maitenance intravenous IV fluids, and blood transfused. Fall precautions and Consult with PT and OT ordered. (5) Atrial fibrillation HR was controlled. We continued her Cardizem and Flecainide, but we stopped her Xarelto due to GI bleeding. (6) UTI (urinary tract infection) Patient has a history of frequent UTIs, and with elevated esterase in the urinalysis, presentation of shaking chills, and elevated WBC, she was treated empirically with intravenous antibiotics starting in the ER. Blood cultures were neg and urine culture was pending at discharge, so she was prescribed several more days, using Vantin, plus a probiotic. (7) Hx Hypertension We put a hold on her HCTZ/Lisinopril home medication, because of orthostasis. (8) Morbid obesity, BMI 42 As per history. - ALLERGIES Allergies/Adverse Reactions: Allergies Allergy/AdvReac Type Severity Reaction Status Date / Time Beta-Blockers Allergy Respiratory Verified 07/09/20 09:51 (Beta-Adrenergic Bloc cephalexin [From Keflex] Allergy Unknown Verified 07/09/20 09:51 Penicillins Allergy Rash Verified 07/09/20 09:51 pentazocine lactate * Allergy Hallucinati Verified 07/09/20 09:51 [From Memo] ons - MEDICATIONS Home Medications: Ambulatory Orders Medication Instructions Recorded Confirmed Gabapentin [Neurontin] 300 mg PO BID 07/24/14 07/09/20 Cefpodoxime Proxetil [Vantin] 100 mg PO Q12H 10 Days #20 tablet 07/09/20 Diltiazem HCl [Tiazac] 120 mg PO DAILY 07/09/20 07/09/20 Flecainide [Tambocar] 1 tab BID 07/09/20 07/09/20 Acetaminophen [Tylenol] 650 mg PO Q4HR PRN tablet 07/11/20 Iron Polysaccharide Complex 150 mg PO DAILY #30 cap 07/11/20 [Ferrex 150] Lactobacillus Acidophilus 1 each PO DAILY #7 cap 07/11/20 [Acidophilus Probiotic] Pantoprazole [Protonix] 40 mg PO BID #60 tablet 07/11/20 - PHYSICAL EXAM AT DISCHARGE General Appearance: positive: No acute distress, Other (Obese ) Eyes Bilateral: positive: Normal inspection, EOMI ENT: positive: ENT inspection nml, No signs of dehydration Neck: positive: Nml inspection, No JVD (but neck obese) Respiratory: positive: No respiratory distress, Breath sounds nml Cardiovascular: positive: No murmur (Distant heart sounds) Abdomen: positive: Other (Obese with pannus, no tenderness) Skin: positive: Warm, Dry, Pallor Extremities: positive: No pedal edema Neurologic/Psychiatric: positive: Oriented x3 (Non-focal.) - LABS Result Diagrams: 07/11/20 12:27 07/11/20 05:05 - DIAGNOSTIC IMAGING Diagnostic Imaging Results: Final report reviewed - SEPSIS Current Stage of Sepsis: Ruled out - FOLLOW UP Follow Up: See PCP in about 1 week for hospital follow-up. - TIME SPENT Time Spent in Discharge (Minutes): 30
== END 2020-07-11 15:42 | disposition home or self-care (01) | DRG 378 ==
LOC: EDUNIT# → ED 09:31 → MS2 15:34 → OBSVTOIN 07-10 09:14
PROVIDERS: ADMIT Nurse Practitioner Gerontology; ATTEND Internal Medicine
PROC: 30233N1 Transfusion of Nonautologous Red Blood Cells into Peripheral Vein, Percutaneous Approach (ICD-10-PCS; 2020-07-10)
PROC: 0DJ08ZZ Inspection of Upper Intestinal Tract, Via Natural or Artificial Opening Endoscopic (ICD-10-PCS; principal; 2020-07-10 15:30)
DX: K92.2 Gastrointestinal hemorrhage, unspecified (principal); D62 Acute posthemorrhagic anemia; N39.0 Urinary tract infection, site not specified; D64.9 Anemia, unspecified; Z68.41 Body mass index [BMI] 40.0-44.9, adult; I48.20 Chronic atrial fibrillation, unspecified; I95.1 Orthostatic hypotension; E86.0 Dehydration; I10 Essential (primary) hypertension; M19.90 Unspecified osteoarthritis, unspecified site; Z20.822 Contact with and (suspected) exposure to COVID-19; E66.01 Morbid (severe) obesity due to excess calories; Z66 Do not resuscitate; Z79.01 Long term (current) use of anticoagulants; Z79.899 Other long term (current) drug therapy; Z87.440 Personal history of urinary (tract) infections; Z96.659 Presence of unspecified artificial knee joint; E66.9 Obesity, unspecified; I48.91 Unspecified atrial fibrillation
CPT/HCPCS: 36415; 80048; 80053; 81001; 82274; 82607; 82728; 83540; 83605; 83615; 84443; 84466; 84484; 85014; 85018; 85025; 85045; 86850; 86900; 86901; 86920; 87040; 87086; 87631; 93005; 96365; 96375; 97110; 97116; 97161; 99284; 99285; A9270; G0378; J7120; P9016; 0202U

== ENCOUNTER 2020-07-15 14:23 | Outpatient (CLI) | payer MEDICARE, OTHER ==
[2020-07-15 18:16] LABS: BASOPHILS # (AUTO) 0.1 10^3/uL (0.0-0.1); BASOPHILS % (AUTO) 0.5 %; EOSINOPHILS # (AUTO) 0.3 10^3/uL (0.0-0.7); EOSINOPHILS % (AUTO) 2.4 %; HCT - HEMATOCRIT 24.4 % (37.0-47.0); HGB - HEMOGLOBIN 7.5 g/dL (12.0-16.0); LYMPHOCYTES # (AUTO) 2.6 10^3/uL (1.5-3.5); LYMPHOCYTES % (AUTO) 24.7 %; MEAN CORPUSCULAR HEMOGLOBIN 31.3 pg (27.0-31.0); MEAN CORPUSCULAR HGB CONC 30.7 g/dL (32.0-36.0); MEAN CORPUSCULAR VOLUME 101.7 fL (81.0-99.0); MONOCYTES # (AUTO) 1.1 10^3/uL (0.0-1.0); MONOCYTES % (AUTO) 10.7 %; NEUTROPHILS # (AUTO) 6.4 10^3/uL (1.5-6.6); NEUTROPHILS % (AUTO) 60.8 %; PLT - PLATELET COUNT 434 10^3/uL (130-450); RED CELL DISTRIBUTION WIDTH 16.2 % (12.0-15.0); WHITE BLOOD COUNT 10.6 x10^3/uL (4.8-10.8)
== END 2020-07-15 23:59 | disposition home or self-care (01) ==
LOC: LAB.WCP 14:23
PROVIDERS: ATTEND Nurse Practitioner Family
DX: K92.2 Gastrointestinal hemorrhage, unspecified (principal)
CPT/HCPCS: 36415; 85025

== ENCOUNTER 2020-07-20 08:00 | Outpatient (CLI) | payer MEDICARE, OTHER ==
[2020-07-20 18:12] LABS: BASOPHILS # (AUTO) 0.1 10^3/uL (0.0-0.1); BASOPHILS % (AUTO) 0.6 %; EOSINOPHILS # (AUTO) 0.3 10^3/uL (0.0-0.7); EOSINOPHILS % (AUTO) 3.1 %; HCT - HEMATOCRIT 28.3 % (37.0-47.0); HGB - HEMOGLOBIN 8.4 g/dL (12.0-16.0); LYMPHOCYTES # (AUTO) 2.2 10^3/uL (1.5-3.5); LYMPHOCYTES % (AUTO) 26.5 %; MEAN CORPUSCULAR HEMOGLOBIN 30.7 pg (27.0-31.0); MEAN CORPUSCULAR HGB CONC 29.7 g/dL (32.0-36.0); MEAN CORPUSCULAR VOLUME 103.3 fL (81.0-99.0); MEAN PLATELET VOLUME 9.6 fL (7.9-10.8); MONOCYTES % (AUTO) 12.3 %; NEUTROPHILS # (AUTO) 4.8 10^3/uL (1.5-6.6); PLT - PLATELET COUNT 499 10^3/uL (130-450); RED BLOOD COUNT 2.74 10^6/uL (4.20-5.40); RED CELL DISTRIBUTION WIDTH 16.5 % (12.0-15.0); WHITE BLOOD COUNT 8.5 x10^3/uL (4.8-10.8)
== END 2020-07-20 23:59 | disposition home or self-care (01) ==
LOC: LAB.WCP 08:00
PROVIDERS: ATTEND Physician Assistant Medical
DX: K92.2 Gastrointestinal hemorrhage, unspecified (principal)
CPT/HCPCS: 36415; 85025

== ENCOUNTER 2020-08-18 09:46 | Outpatient (CLI) | payer MEDICARE, OTHER ==
[2020-08-18 13:04] LABS: BASOPHILS % (AUTO) 0.5 %; EOSINOPHILS # (AUTO) 0.1 10^3/uL (0.0-0.7); EOSINOPHILS % (AUTO) 2.2 %; HGB - HEMOGLOBIN 11.6 g/dL (12.0-16.0); LYMPHOCYTES # (AUTO) 1.8 10^3/uL (1.5-3.5); LYMPHOCYTES % (AUTO) 27.1 %; MEAN CORPUSCULAR HEMOGLOBIN 30.1 pg (27.0-31.0); MEAN CORPUSCULAR HGB CONC 30.5 g/dL (32.0-36.0); MEAN CORPUSCULAR VOLUME 98.7 fL (81.0-99.0); MEAN PLATELET VOLUME 9.7 fL (7.9-10.8); MONOCYTES # (AUTO) 0.7 10^3/uL (0.0-1.0); NEUTROPHILS # (AUTO) 3.9 10^3/uL (1.5-6.6); NEUTROPHILS % (AUTO) 59.9 %; PLT - PLATELET COUNT 385 10^3/uL (130-450); RED BLOOD COUNT 3.85 10^6/uL (4.20-5.40); RED CELL DISTRIBUTION WIDTH 13.9 % (12.0-15.0); WHITE BLOOD COUNT 6.5 x10^3/uL (4.8-10.8)
[2020-08-18 14:10] LABS: ALBUMIN 4.2 g/dL (3.2-5.5); ALBUMIN/GLOBULIN RATIO 1.1 (1.0-2.2); BILIRUBIN,TOTAL 0.3 mg/dL (0.2-1.0); CALCIUM 9.5 mg/dL (8.5-10.3); POTASSIUM 4.3 mmol/L (3.5-5.0); TOTAL PROTEIN 7.9 g/dL (6.7-8.2)
== END 2020-08-18 23:59 | disposition home or self-care (01) ==
LOC: LAB.WCP 09:46
PROVIDERS: ATTEND Family Medicine
DX: K92.2 Gastrointestinal hemorrhage, unspecified (principal)
CPT/HCPCS: 36415; 80053; 82728; 83540; 84466; 85025

== ENCOUNTER 2020-08-20 08:00 | Outpatient (CLI) | payer MEDICARE, OTHER | END 2020-08-20 23:59 | disposition home or self-care (01) | LOC: LAB.WCP 08:00 | PROVIDERS: ATTEND Family Medicine | DX: R30.0 Dysuria (principal) | CPT/HCPCS: 87086 ==

== ENCOUNTER 2020-09-22 07:20 | Day surgery (SDC) | payer MEDICARE, OTHER ==
[2020-09-22] MEDS ORDERED: LACTATED RINGERS 1,000 ML IV ONE ×2 (08:19→09:43)
[2020-09-22] MEDS ORDERED: fentaNYL 250 MCG/5 ML VIAL ONE (09:03)
[2020-09-22] MEDS ORDERED: MIDAZOLAM 2 MG/2 ML VIAL ONE ×3 (09:03→09:22)
[2020-09-22] MEDS ORDERED: ONDANSETRON 4 MG/2 ML VIAL ONE (09:04)
[2020-09-22] MEDS ORDERED: IOVERSOL 320 100 ML VIAL IVP ONE ×2 (10:05→12:15)
[2020-09-22] MEDS ORDERED: IOPAMIDOL-300 50 ML VIAL ONE (10:06)
[2020-09-22 11:03] LABS: CREATININE 0.9 mg/dL (0.4-1.0)
[2020-09-22 11:04] VITALS: BP 128/67
[2020-09-22] MEDS ORDERED: IOPAMIDOL-300 50 ML VIAL PO ONE (12:15)
--- NOTE | 2020-09-22 12:27 | CT Report ---
PROCEDURE: Abdomen/Pelvis W INDICATIONS: Incomplete colonoscopy CONTRAST: IV CONTRAST: Optiray 320 ml: 100 PO CONTRAST: Isovue 300 ml100 TECHNIQUE: After the administration of IV and rectal contrast, 5 mm thick sections acquired from the diaphragms to the symphysis. 5 mm thick coronal and sagittal reformats were acquired. For radiation dose reduc tion, the following was used: automated exposure control, adjustment of mA and/or kV according to pa tient size. COMPARISON: None. FINDINGS: Image quality: Excellent. ABDOMEN: Lung bases: Lung bases are clear. Heart size is normal. Solid organs: Liver and spleen are normal in size and enhancement. Gallbladder surgically absent. Biliary system is non dilated. Pancreas enhances normally. No adrenal nodules. Kidneys demonstrate normal size and enhancement, without hydronephrosis. Peritoneum and bowel: Bowel loops demonstrate normal wall thickness and caliber. No free fluid or a ir. The colon is completely distended and shows no filling defect or stricture. Nodes and vessels: No retroperitoneal or mesenteric adenopathy by size criteria. Aorta and inferior vena cava are normal in size. Miscellaneous: No ventral hernias. PELVIS: Genitourinary: Bladder wall thickness is normal. Miscellaneous: No inguinal hernias or adenopathy. Bones: No suspicious bony lesions. No vertebral body compression fractures. Degenerative changes i n the lumbar spine resulting in convex left scoliosis and severe central stenosis at L3-4 IMPRESSION: 1. Unremarkable colon. The colon is well-distended and shows no intraluminal filling defect or strict ure. 2. 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
== END 2020-09-22 07:21 | disposition home or self-care (01) ==
LOC: SDS 07:20
PROVIDERS: ATTEND Surgery
PROC: 0DBN8ZZ Excision of Sigmoid Colon, Via Natural or Artificial Opening Endoscopic (ICD-10-PCS; principal; 2020-09-22 09:15)
DX: K92.1 Melena (principal); D12.5 Benign neoplasm of sigmoid colon; D50.9 Iron deficiency anemia, unspecified; K64.8 Other hemorrhoids; K64.4 Residual hemorrhoidal skin tags; K57.30 Diverticulosis of large intestine without perforation or abscess without bleeding
CPT/HCPCS: 36415; 45380; 74177; 82565; J3010; J7120; Q9967

== ENCOUNTER 2020-11-06 11:30 | Outpatient (CLI) | payer MEDICARE, OTHER ==
--- NOTE | 2020-11-06 12:25 | XRAY Report ---
PROCEDURE: Hip w/Pelvis 2-3V LT INDICATIONS: LEFT HIP PAIN / TROCHANTERIC BURSITIS TECHNIQUE: AP pelvis with lateral view(s) of the left hip(s). COMPARISON: None. FINDINGS: Bones: No fractures or dislocations. Mild to moderate bilateral hip joint osteoarthritic changes ar e seen. No evidence of avascular necrosis of femoral head. Pelvic ring appears intact. Degenerative disc disease throughout visualized lower lumbar spine is seen more prominent at L4-5 and L5-S1 levels . No suspicious bony lesions. Soft tissues: The visualized bowel gas pattern is normal. No suspicious soft tissue calcifications. 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 No fracture or d islocation. No evidence of avascular necrosis. Degenerative disc disease in lower lumbar spine. Reviewed by: Donavon Wayne MD on 11/06/2020 12:24 PM PDT Approved by: Donavon Wayne MD on 11/06/2020 12:24 PM PDT Station ID: [id number]
== END 2020-11-06 11:31 | disposition home or self-care (01) ==
LOC: DI.N 11:30
PROVIDERS: ATTEND Family Medicine
DX: M70.62 Trochanteric bursitis, left hip (principal); M16.0 Bilateral primary osteoarthritis of hip; M47.816 Spondylosis without myelopathy or radiculopathy, lumbar region